=== PATIENT | male | born 1965 | race Caucasian/White ===

== ENCOUNTER 2016-10-19 11:29 | Emergency (ER) | payer OTHER ==
[~2016-10-19] VITALS: Ht 165.1 cm; Wt 64.3 kg
[~2016-10-19 11:29] MED LIST: ATOR-24 PO
[2016-10-19 11:42] VITALS: TEMP 36.7; Ht 165.1 cm; Wt 64.3 kg
[2016-10-19] MEDS ORDERED: TRAMADOL HCL 50 MG TAB PO STA ×2 (12:24→15:55)
[2016-10-19] MEDS ORDERED: DIPHTHERIA/TETANUS/PERTUSSIS 0.5 ML SYR/VIAL IM. ONE (12:30)
--- NOTE | 2016-10-19 13:01 | DIAGNOSTIC IMAGING REPORT ---
CT OF THE CERVICAL SPINE WITHOUT CONTRAST CLINICAL HISTORY: Left neck and left arm pain. Recent injury. COMPARISON STUDY: No previous studies for comparison. TECHNIQUE: Helical axial images of the cervical spine were obtained without IV contrast. Sagittal and coronal reconstructions were viewed. FINDINGS: There is reversal of the normal cervical lordosis. Alignment is otherwise anatomic. There is no acute fracture. Mild to moderate multilevel degenerative changes are most pronounced at C6-C7 level where there is a suspected disc bulge with osteophyte formation. There is no prevertebral edema. IMPRESSION: 1. No cervical spine fracture or subluxation. 2. Multilevel degenerative disc disease most pronounced at C6-C7 where a suspected disc bulge with osteophyte formation that results moderate narrowing of the canal, suboptimally assessed by CT. Electronically signed by: Russ Kirkpatrick M.D. 10/19/2016 12:59 PM Dictated Date/Time: 10/19/2016 12:54 PM
--- NOTE | 2016-10-19 13:32 | EMERGENCY ROOM VISIT NOTE ---
History Report prepared by John: Elyl Ortega Under the Supervision of: Dr. Homer Sosa M.D. First contact with patient: 12:20 Chief Complaint: SHOULDER PAIN Stated Complaint: NECK AND SHOULDER PAIN, NUMBESS IN R ARM History of Present Illness The patient is a 51 year old male who presents to the Emergency Room with complaints of intermittent and worsening right shoulder pain that started a couple weeks ago. The pain occasionally radiates down his right arm and it is worse with movement, especially rotation of his neck or right arm. He describes the pain as a stabbing pain. He adds that he is experiencing pressure in his upper right arm that feels like it is edematous, but he has not noticed any significant edema. Additionally, he is experiencing intermittent numbness in his right arm. The patient states that he originally thought that he had a pinched nerve so he let it go for a while because he anticipated that it would resolve on its own. However, over the last couple of days, the pain has gotten worse and it is at the point that he is unable to sleep at night because of the pain. The patient was able to somewhat relieve his pain with a lidocaine patch and tramadol last night that his has at home from a broken rib. The patient adds that he is also experiencing nausea secondary to the pain, but it is relieved with Zofran. The patient works on flatbed trucks and states that he slipped a few times over the last couple weeks when he was tightening the straps on the truck, which is what originally triggered his pain. He denies being in any other pain including chest pain, abdominal pain, or leg pain. The patient's adds that the patient's tetanus shot is out of date. Source of History: patient, spouse/significant other () Onset: a couple weeks ago Position: shoulder (right) Quality: stabbing Timing: worsening Modifying Factors (Worsening): movement Modifying Factors (Relieving): other (lidocaine patch, tramadol) Associated Symptoms: + nausea, No abdominal pain, No chest pain Note: no leg pain Review of Systems All systems have been listed, reviewed, and are negative other than those previously mentioned. Please see Additional Medical History Sheet. Past Medical & Surgical Medical Problems: (1) History of inguinal hernia Family History Cancer Social History Smoking Status: Never Smoker Alcohol Use: none Marital Status: Housing Status: lives with family Occupation Status: employed Current/Historical Medications Scheduled Atorvastatin (Lipitor), 40 MG PO DAILY Prednisone (Prednisone), 50 MG PO DAILY Scheduled PRN Tramadol (Ultram), 50 MG PO Q4H PRN for Pain Allergies Coded Allergies: No Known Allergies (Unverified , 03/28/14) Physical Exam Vital Signs Date Time Temp Pulse Resp B/P Pulse Ox O2 Delivery O2 Flow Rate FiO2 10/19/16 16:27 65 16 131/92 100 10/19/16 14:48 60 16 127/86 98 Room Air 10/19/16 13:33 57 16 117/67 99 10/19/16 11:42 36.7 71 18 124/79 98 Room Air Physical Exam GENERAL: Patient awake, alert, oriented x 3. Patient follows commands. Patient does not appear toxic. Patient is adequately hydrated and well- nourished. SKIN: No erythema, pallor, cyanosis or rash HEENT: Normal head, pupils equal, reactive to light and accommodation. Oral cavity and posterior pharynx appear normal. Neck: Without adenopathy, no neck vein distention. Tenderness to palpation of medial shoulder to right scapula. Minimal tenderness in neck. Pain with movement of right arm. LUNGS: Clear to auscultation. No wheezes, no rales, no rhonchi. HEART: No murmurs. No gallops. No rubs ABDOMEN: Soft, nontender. EXTREMITIES: No signs of trauma or infection. NEUROLOGIC: Cranial nerves II-XII within normal limits. No gross motor sensory function deficits. Medical Decision & Procedures ER Provider Diagnostic Interpretation: CT and MRI results are interpretations by the radiologist and per my review. CT OF THE CERVICAL SPINE WITHOUT CONTRAST IMPRESSION: 1. No cervical spine fracture or subluxation. 2. Multilevel degenerative disc disease most pronounced at C6-C7 where a suspected disc bulge with osteophyte formation that results moderate narrowing of the canal, suboptimally assessed by CT. Electronically signed by: Russ Kirkpatrick M.D. 10/19/2016 12:59 PM Dictated Date/Time: 10/19/2016 12:54 PM MRI OF THE CERVICAL SPINE WITHOUT CONTRAST IMPRESSION: 1. No acute findings within the cervical spine by MRI. 2. Normal cervical cord signal and caliber. 3. Mild central canal stenosis at C5-C6 and C6-C7. 4. Moderate to severe neural frontal stenosis, as described above. Electronically signed by: Russ Kirkpatrick M.D. 10/19/2016 2:53 PM Dictated Date/Time: 10/19/2016 2:47 PM Medications Administered Medications (Trade) Dose Ordered Sig/Kevon Route Start Time Stop Time Status Last Admin Dose Admin Tramadol HCl (Ultram Tab) 50 mg NOW STAT PO 10/19/16 12:24 10/19/16 12:26 DC 10/19/16 12:49 50 MG Diphtheria/ Pertussis/Tetanus Vacc (Adacel Inj) 0.5 ml ONCE ONCE IM. 10/19/16 12:30 10/19/16 12:31 DC 10/19/16 12:54 0.5 ML Prednisone (PredniSONE TAB) 60 mg NOW STAT PO 10/19/16 15:55 10/19/16 15:57 DC 10/19/16 16:12 60 MG Tramadol HCl (Ultram Tab) 50 mg NOW STAT PO 10/19/16 15:55 10/19/16 15:57 DC 10/19/16 16:11 50 MG ED Course 1220: Past medical records reviewed. The patient was evaluated in room C5. A complete history and physical examination was performed. 1224: Ordered Ultram Tab 50 mg PO 1230: Ordered Adacel Inj 0.5 ml IM 1329: I reassessed the patient and updated him on his CT results. We discussed the possibility of getting a MRI. He agreed to proceed with getting a MRI. 1546: Upon reevaluation, the patient appeared to have improvement of his symptoms. I discussed today's findings with him. He verbalized agreement of the treatment plan. He was discharged home. 1555: Ordered Ultram Tab 50 mg PO, Prednisone 60 mg PO Medical Decision Nurses notes reviewed. Medical history sheet reviewed. Differential diagnosis includes but is not limited to: cervical radiculopathy, muscular strain/spasm. The patient is here with right shoulder or arm and neck pain. I was concerned primarily about cervical radiculopathy. Initial CT did show some narrowing and an MRI was then ordered. Patient has significant narrowing at C5 6 and C6 7. The patient was started on prednisone here. He will also take tramadol as needed for pain. The patient was encouraged to follow up with his family physician. The patient will most likely require consultation by spine surgery. The patient was encouraged to avoid all lifting for at least 1 week. [place] Drug Monitoring Program Search Results: patient reviewed within database, no issues identified Impression Primary Impression: Cervical radiculopathy Scribe Attestation The scribe's documentation has been prepared under my direction and personally reviewed by me in its entirety. I confirm that the note above accurately reflects all work, treatment, procedures, and medical decision making performed by me. Departure Information Dispostion Home / Self-Care Prescriptions Tramadol (Ultram) 50 Mg Tab 50 MG PO Q4H Y for Pain, #24 TAB Prov: Homer Sosa M.D. 10/19/16 Prednisone (PREDNISONE) 50 Mg Tab 50 MG PO DAILY for 4 Days, #6 TAB Prov: Homer Sosa M.D. 10/19/16 Referrals Sharon Macias M.D. (PCP) Forms HOME CARE DOCUMENTATION FORM, IMPORTANT VISIT INFORMATION Patient Instructions My [facility] Additional Instructions Off work for 7 days. 50 mg of prednisone daily starting tomorrow. 1 tramadol every 4 hours as needed for moderate to severe pain. Do not drive or operate machinery while taking tramadol. Follow-up with your family physician within the next week. No lifting or straining for the next 7 days. Work Instructions Return To Work: 1 week Lifting Limitations: none
--- NOTE | 2016-10-19 14:55 | DIAGNOSTIC IMAGING REPORT ---
MRI OF THE CERVICAL SPINE WITHOUT CONTRAST CLINICAL HISTORY: Neck pain with upper extremity radiculopathy. COMPARISON: Cervical spine CT performed earlier today. TECHNIQUE: Utilizing a 1.5 Betty magnet and dedicated coil, multiplanar, multiecho imaging of the cervical spine was performed without IV contrast. FINDINGS: There is straightening of the normal cervical lordosis. Vertebral body heights are maintained. There is no marrow replacement. Cervical cord signal and caliber are normal. There is no intracanalicular mass or fluid collection. Paravertebral soft tissues are unremarkable. C2-C3: The central canal and neural foramen are patent. C3-C4: A small right upper central disc protrusion is present. There is mild narrowing of the right aspect of the canal. There is moderate narrowing of the left neural foramen due to uncovertebral hypertrophy. C4-C5: Central canal and neural foramen are patent. C5-C6: There is a small left paracentral disc protrusion. There is mild narrowing of the left aspect of the canal. There is moderate bilateral neural foraminal stenosis. C6-C7: Posterior disc osteophyte complex results in mild narrowing of the central canal. There is moderate to severe narrowing of the left neural foramen. C7-T1: The central canal and neural foramen are patent. IMPRESSION: 1. No acute findings within the cervical spine by MRI. 2. Normal cervical cord signal and caliber. 3. Mild central canal stenosis at C5-C6 and C6-C7. 4. Moderate to severe neural frontal stenosis, as described above. Electronically signed by: Russ Kirkpatrick M.D. 10/19/2016 2:53 PM Dictated Date/Time: 10/19/2016 2:47 PM
[2016-10-19] MEDS ORDERED: TRAM-10 PO (15:59)
[2016-10-19] MEDS ORDERED: PRED50TA PO (15:59)
[2016-10-19 16:27] VITALS: BP 131/92; PULSE 65; O2SAT 100
== END 2016-10-19 16:28 | disposition home or self-care (01) ==
LOC: C.EDB 11:30 → C.EDC 16:28
DX: M54.12 Radiculopathy, cervical region (principal); Z23 Encounter for immunization; Z79.899 Other long term (current) drug therapy; Z80.9 Family history of malignant neoplasm, unspecified

== ENCOUNTER 2022-10-10 13:21 | Inpatient (IN) ==
--- NOTE | 2022-10-10 13:37 | ED Triage Note ---
Date of Service October 10, 2022 History of Present Illness This patient was briefly evaluated while in triage. An abbreviated physical exam was performed. This patient is a 57-year-old Male who presents to the ED for evaluation of chest pain that began 2 days ago. Sometimes it radiates into his left arm with a little bit of tingling. It is worse when he bends forward and when he comes back up. It was worse with exertion today which is why he came to the ED. He has been laying around in bed over the past 2 days not feeling great. He denies any cough or shortness of breath. No cardiac history. Physical Exam CONSTITUTIONAL: in no acute pain or distress, resting comfortably SKIN: pink, warm, dry CARDIAC: regular rate and rhythm RESPIRATORY: in no respiratory distress, lungs clear to auscultation Initial orders for labs and / or imaging were placed and patient was placed in the waiting area until a bed is available. Please see further documentation for the full ED course.
--- NOTE | 2022-10-10 14:01 | XRay Report ---
XR chest 1V not portable CLINICAL HISTORY: Atypical chest pain. COMPARISON STUDY: Chest radiograph March 28, 2014. FINDINGS: Lung volumes are normal. Lungs are clear. There is no pneumothorax or pleural effusion. Car diac size is normal. Mediastinal contours are normal. There is no evidence for pulmonary edema. IMPRESSION: No acute cardiopulmonary findings. ACT 112: Negative or not required by law. Electronically signed by: Russ Kirkpatrick M.D. 10/10/2022 1:59 PM
[2022-10-10 14:06] LABS: Basophils # (auto) 0.04 K/uL (0-0.2); Basophils % (auto) 0.4 %; Eosinophils % (auto) 0.9 %; Hemoglobin 16.1 g/dl (14.0-18.0); Immature Granulocytes # (auto) 0.03 K/uL (0.01-0.20); Immature Granulocytes % (auto) 0.3 %; Lymphocytes # (auto) 2.09 K/uL (1.2-3.4); Lymphocytes % (auto) 19.3 %; Mean Corpuscular Hemoglobin 29.9 pg (25.0-34.0); Mean Corpuscular Volume 85.3 fL (80.0-100.0); Mean Platelet Volume 9.5 fL (9.4-12.4); Monocytes # (auto) 1.87 K/uL (0.11-0.59); Monocytes % (auto) 17.2 %; Neutrophils # (auto) 6.72 K/uL (1.40-6.50); Neutrophils % (auto) 61.9 %; Platelet Count 282 K/uL (130-400); RDW Coefficient of Variation 12.3 % (11.5-14.5); RDW Standard Deviation 38.1 fL (36.4-46.3); Red Blood Count 5.39 M/uL (4.70-6.10); White Blood Count 10.85 K/ul (4.8-10.8)
[2022-10-10 14:27] LABS: Albumin Globulin Ratio 1.3 (0.9-2); Albumin Level 4.4 gm/dl (3.4-5.0); BUN Creatinine Ratio 12.5 (10-20); Bilirubin,Total 1.8 mg/dl (0.2-1.0); Calcium 9.7 mg/dl (8.6-10.3); Creatinine Clr Calc Pharmacy 61.5 ml/min; Est GFR (African American) 83.5 ml/min; Globulin 3.3 gm/dl (2.5-4.0); Potassium 4.2 mmol/L (3.5-5.1); Total Protein 7.7 gm/dl (6.0-8.3)
[2022-10-10] MEDS ORDERED: ASPIRIN CHEW 324 MG ONE (14:29)
--- NOTE | 2022-10-10 14:36 | Emergency Department Note ---
Impression & Plan ACS (acute coronary syndrome), History of inguinal hernia ED Provider Note NAME: STEFANY CONNER AGE: 57 SEX: M : 1965 ARRIVES VIA: Walk-In INFORMANT: Patient, ED PROVIDER(S): Mannie You MD CHIEF COMPLAINT: Chest pain MEDICAL DECISION MAKING: Patient presents due to concern for chest pain. I did receive an EKG from the nurse which did show a slight elevation in V2 through V5. I did ask for the on- call solar project engineer to be paged. I did evaluate the patient. After evaluating the patient I spoke with Dr. Santamaria who also agreed that the patient would benefit from emergent catheterization. The patient was ordered aspirin, nitro, heparin, and Brilinta. The patient was taken to the [facility] as an acute STEMI. Patient's troponin was noted to be greater than 14,000. Patient's other blood work showed a white count of 10.8 normal H&H and platelet count. The patient's kidney function was unremarkable. Critical Care: I have personally spent 37 minutes of critical care time in direct management of this patient. This includes bedside care, interpretation of diagnostic studies, and testing, discussion with consultants, patient, and family members, and other require inpatient management activities. This 37 minutes is in excess of all separately billable procedures. Prior /Outside records reviewed: None Differential diagnosis: Cardiac ischemia, aortic dissection, pulmonary embolism, pneumothorax, pneumonia, pericarditis, myocarditis, esophageal rupture, GERD, cholecystitis, pancreatitis, musculoskeletal, as well as other pathologies. Diagnostics, as interpreted by me: ECG: Normal sinus rhythm, rate of 86, normal UT, wide QRS, possible right bundle branch block noted, slight elevation noted V2 through V5 no obvious ST depressions. T wave inversion noted in V2 and V3. This is a change from comparison EKG noted March 28, 2014 Cardiac monitoring: An order was placed for continuous cardiac monitoring. The monitor shows a rate of 72 with sinus rhythm. Patient was placed on pulse oximetry Medical decision rules: None Imaging studies: See below HPI: Patient presents due to concern for chest pain that has been fairly constant. The patient states that its been ongoing since Monday. It is worse with exertion and symptoms worsen when bending over and then standing up to where it seems to radiate. It is not more in the middle of the test and described as a pressure. No prior history of heart or lung disease and the patient denies any shortness of breath. Patient denies any recent falls or trauma no cough or fever. No leg swelling or calf pain. No history of DVT or PE. The patient denies any family history of heart attack. The patient states that it was worsening with activity and this presented today. Patient did take an aspirin today. Patient denies any alcohol tobacco or drug use. No pertinent past medical history. The patient did have a prior history of a hernia repair. PAST MEDICAL HISTORY: See Below PAST SURGICAL HISTORY: See Below SOCIAL HISTORY: See Below HOME MEDICATIONS: See Below ALLERGIES: See Below VITALS: See Below PHYSICAL EXAMINATION: GENERAL: NAD, wearing a mask, non-toxic. EYE EXAM: Normal conjunctiva. PERRL, no anisocoria and EOM's grossly intact w/o pain. NECK: Supple, no nuchal rigidity, no adenopathy, non-tender. No signs of meningismus. FROM of the neck with good chin to chest and neck extension. No stridor. LUNGS: Clear to auscultation. Normal chest wall mechanics. HEART: NSR, no MRG. ABDOMEN: Abdomen soft, non-tender, no masses, no rebound or guarding. BACK: No CVA TTP. SKIN: No rashes and no bruising. UPPER EXTREMITIES: Upper extremities are grossly normal. LOWER EXTREMITIES: Grossly normal, no edema. Negative Homans' sign bilaterally. NEURO EXAM: A&O x3, cranial nerves II-XII grossly intact, normal speech, moves all 4 extremities. Past Med/Surg History Medical History Acid reflux History of inguinal hernia Inguinal hernia recurrent bilateral Inguinal hernia recurrent bilateral Family History Other No pertinent family history in first degree relatives Social History Smoking Status: Never smoker Second Hand Exposure: No; Do You Dip or Chew Tobacco: No; Tobacco Cessation Education Requested by Patient: No Hx Alcohol Use: No Hx Substance Use: No Preferred Language: Italian Communication Ability: Effective Elementary Educator Required: No Beliefs That Will Affect Care: None Current Living Situation: Spouse Other Information That Helps Us Care for You: No Feels Safe at Home: Yes Safety Concerns: Feels Safe At This Time Assistive Devices: None Allergies Allergies Allergy/AdvReac Type Severity Reaction Status Date / Time No Known Allergies Allergy Unverified 08/19/18 14:53 Home Meds Home Medications Medication Instructions Recorded Confirmed omeprazole magnesium 20 mg 0 mg PO DAILY 08/19/18 08/19/18 tablet,delayed release (Prilosec OTC) Results & Data (ED) Vital Signs Vital Signs - 24 hr 10/10/22 13:31 10/10/22 14:32 10/10/22 14:32 Temperature 36.7 C Temperature Source Temporal Artery Scan Pulse Rate 108 H 93 H Pulse Rate [Apical] 86 Pulse Rhythm Regular Pulse Strength Normal Respiratory Rate 18 16 Respiratory Effort / Characteristics Non-Labored Respiratory Depth Normal Normal Respiratory Pattern Regular Blood Pressure 134/82 Blood Pressure [Left Arm] 128/90 Blood Pressure Mean 99 Blood Pressure Mean [Left Arm] 102 Blood Pressure Position Lying Pulse Oximetry 98 98 97 Oxygen Delivery Method Room Air Sepsis Recent Fever Within 48 Hours No Sepsis New/Unexplained Change in Mental Status No Sepsis Action Taken by Nursing No Action Required 10/10/22 15:25 Temperature Temperature Source Pulse Rate 128 H Pulse Rate [Apical] Pulse Rhythm Pulse Strength Respiratory Rate Respiratory Effort / Characteristics Respiratory Depth Respiratory Pattern Blood Pressure Blood Pressure [Left Arm] Blood Pressure Mean Blood Pressure Mean [Left Arm] Blood Pressure Position Pulse Oximetry Oxygen Delivery Method Sepsis Recent Fever Within 48 Hours Sepsis New/Unexplained Change in Mental Status Sepsis Action Taken by Longterm Medications Current Medication List: was personally reviewed by me Laboratory Data Attestation: I reviewed the patient's lab results. 10/10/22 13:38 10/10/22 13:38 Lab Results 10/10/22 10/10/22 10/10/22 Range/Units 13:38 13:38 15:39 WBC 10.85 H (4.8-10.8) K/ul RBC 5.39 (4.70-6.10) M/uL Hgb 16.1 (14.0-18.0) g/dl Hct 46.0 (42.0-52.0) % MCV 85.3 (80.0-100.0) fL MCH 29.9 (25.0-34.0) pg MCHC 35.0 (32.0-36.0) g/dL RDW Std Deviation 38.1 (36.4-46.3) fL RDW Coeff of Teagan 12.3 (11.5-14.5) % Plt Count 282 (130-400) K/uL MPV 9.5 (9.4-12.4) fL Immature Gran % (Auto) 0.3 % Neut % (Auto) 61.9 % Lymph % (Auto) 19.3 % [place]elfair % (Auto) 17.2 % Eos % (Auto) 0.9 % Baso % (Auto) 0.4 % Neut # (Auto) 6.72 H (1.40-6.50) K/uL Lymph # (Auto) 2.09 (1.2-3.4) K/uL T[place]air # (Auto) 1.87 H (0.11-0.59) K/uL Eos # (Auto) 0.10 (0-0.50) K/uL Baso # (Auto) 0.04 (0-0.2) K/uL Immature Gran # (Auto) 0.03 (0.01-0.20) K/uL Activ Coag Time Kaolin 282 H (94-140) SECONDS Sodium 139 (136-145) mmol/L Potassium 4.2 (3.5-5.1) mmol/L Chloride 104 (98-107) mmol/L Carbon Dioxide 29 (21-32) mmol/L Anion Gap 6 (3-11) BUN 14 (6-23) mg/dl Creatinine 1.12 (0.6-1.4) mg/dl Est Cr Clr Drug Dosing 61.5 ml/min Est GFR ( Amer) 83.5 ml/min Est GFR (Non-Af Amer) 72.0 ml/min BUN/Creatinine Ratio 12.5 (10-20) Glucose 97 (70-99(Fasting)) mg/dl Calcium 9.7 (8.6-10.3) mg/dl Total Bilirubin 1.8 H (0.2-1.0) mg/dl AST 110 H (13-39) U/L ALT 30 (7-52) U/L Alkaline Phosphatase 79 (34-104) U/L Troponin I High Sens 61548.0 H* (0-20) pg/ml Total Protein 7.7 (6.0-8.3) gm/dl Albumin 4.4 (3.4-5.0) gm/dl Globulin 3.3 (2.5-4.0) gm/dl Albumin/Globulin Ratio 1.3 (0.9-2) Lipase 21 (11-82) U/L 10/10/22 Range/Units 16:05 WBC (4.8-10.8) K/ul RBC (4.70-6.10) M/uL Hgb (14.0-18.0) g/dl Hct (42.0-52.0) % MCV (80.0-100.0) fL MCH (25.0-34.0) pg MCHC (32.0-36.0) g/dL RDW Std Deviation (36.4-46.3) fL RDW Coeff of Teagan (11.5-14.5) % Plt Count (130-400) K/uL MPV (9.4-12.4) fL Immature Gran % (Auto) % Neut % (Auto) % Lymph % (Auto) % T[place] % (Auto) % Eos % (Auto) % Baso % (Auto) % Neut # (Auto) (1.40-6.50) K/uL Lymph # (Auto) (1.2-3.4) K/uL T[place]air # (Auto) (0.11-0.59) K/uL Eos # (Auto) (0-0.50) K/uL Baso # (Auto) (0-0.2) K/uL Immature Gran # (Auto) (0.01-0.20) K/uL Activ Coag Time Kaolin 233 H (94-140) SECONDS Sodium (136-145) mmol/L Potassium (3.5-5.1) mmol/L Chloride (98-107) mmol/L Carbon Dioxide (21-32) mmol/L Anion Gap (3-11) BUN (6-23) mg/dl Creatinine (0.6-1.4) mg/dl Est Cr Clr Drug Dosing ml/min Est GFR ( Amer) ml/min Est GFR (Non-Af Amer) ml/min BUN/Creatinine Ratio (10-20) Glucose (70-99(Fasting)) mg/dl Calcium (8.6-10.3) mg/dl Total Bilirubin (0.2-1.0) mg/dl AST (13-39) U/L ALT (7-52) U/L Alkaline Phosphatase (34-104) U/L Troponin I High Sens (0-20) pg/ml Total Protein (6.0-8.3) gm/dl Albumin (3.4-5.0) gm/dl Globulin (2.5-4.0) gm/dl Albumin/Globulin Ratio (0.9-2) Lipase (11-82) U/L Administered Medications Sodium Chloride (Nss 1000ml) 1,000 mls @ 100 mls/hr IV .Q10H OMAR Stop: 10/10/22 22:14 Last Admin: 10/10/22 17:56 Dose: 100 mls/hr Documented By: DERICK Miscellaneous (Icu Protocol For Hyperglycemia) 1 each N/A ACHS OMAR Stop: 10/12/22 17:42 Last Admin: 10/10/22 17:58 Dose: Not Given Documented By: DERICK Discontinued Medications Aspirin (Aspirin Chew 324 Mg) Confirm Administered Dose 324 mg .ROUTE .STK-MED ONE Stop: 10/10/22 14:30 Last Admin: 10/10/22 14:48 Dose: 324 mg Documented By: ESEQUIEL Aspirin (Aspirin Chew 324 Mg) 324 mg PO NOW STA Stop: 10/10/22 14:47 Last Admin: 10/10/22 16:42 Dose: Not Given Documented By: ENRIQUE Fentanyl Citrate (Fentanyl Citrate Pf 100 Mcg/2 Ml Vial) Confirm Administered Dose 100 mcg .ROUTE .STK-MED ONE Stop: 10/10/22 14:46 Last Admin: 10/10/22 16:41 Dose: 100 mcg Documented By: ENRIQUE Fentanyl Citrate (Fentanyl Citrate Pf 100 Mcg/2 Ml Vial) Confirm Administered Dose 100 mcg .ROUTE .STK-MED ONE Stop: 10/10/22 16:10 Last Admin: 10/10/22 16:41 Dose: 25 mcg Documented By: ENRIQUE Heparin Sodium (Porcine) (Heparin (Porcine) 1000 Unit/Ml 10 Ml ([facility] Use Only)) Confirm Administered Dose 10,000 units .ROUTE .STK-MED ONE Stop: 10/10/22 14:46 Last Admin: 10/10/22 16:42 Dose: 10,000 units Documented By: ENRIQUE Heparin Sodium (Porcine) (Heparin Sod (Porcine) 1000 Unit/Ml) 5,000 units IV NOW ONE Stop: 10/10/22 14:57 Last Admin: 10/10/22 16:43 Dose: Not Given Documented By: ENRIQUE Heparin Sodium/Sodium Chloride (Heparin In Nss Infusion 1000 Unit/500 Ml (2 U/Ml) Bag) Confirm Administered Dose 3,000 units IV .STK-MED ONE Stop: 10/10/22 14:47 Last Admin: 10/10/22 16:43 Dose: 3,000 units Documented By: CUCO Heparin Sodium/Dextrose (Heparin Sodium/Dextrose) 25,000 units in 500 mls @ 22 mls/hr IV .[id number] [facility]; Protocol Stop: 11/09/22 14:59 Last Admin: 10/10/22 16:43 Dose: Not Given Documented By: ENRIQUE Midazolam HCl (Midazolam Hcl 1 Mg/Ml 2ml Vial) Confirm Administered Dose 2 mg .ROUTE .STK-MED ONE Stop: 10/10/22 14:46 Last Admin: 10/10/22 16:42 Dose: 2 mg Documented By: ENRIQUE Midazolam HCl (Midazolam Hcl 1 Mg/Ml 2ml Vial) Confirm Administered Dose 2 mg .ROUTE .STK-MED ONE Stop: 10/10/22 15:50 Last Admin: 10/10/22 16:44 Dose: 2 mg Documented By: ENRIQUE Nicardipine HCl (Nicardipine Hcl Inj 2.5 Mg/Ml 10 Ml Amp) Confirm Administered Dose 25 mg .ROUTE .STK-MED ONE Stop: 10/10/22 14:46 Last Admin: 10/10/22 16:42 Dose: 25 mg Documented By: CUCO Nitroglycerin (Nitroglycerin Sl 0.4 Mg/Tab Tab) Confirm Administered Dose 0.4 mg .ROUTE .STK-MED ONE Stop: 10/10/22 14:42 Last Admin: 10/10/22 14:42 Dose: 0.4 mg Documented By: ESEQUIEL Nitroglycerin (Nitroglycerin Sl 0.4 Mg/Tab Tab) 0.4 mg SL NOW STA Stop: 10/10/22 14:45 Last Admin: 10/10/22 14:48 Dose: 0.4 mg Documented By: ESEQUIEL Nitroglycerin/Dextrose (Nitroglycerin/D5w 100mcg/Ml 20ml Syr) Confirm Administered Dose 2,000 mcg .ROUTE .STK-MED ONE Stop: 10/10/22 14:47 Last Admin: 10/10/22 16:43 Dose: 2,000 mcg Documented By: CUCO Pantoprazole Sodium (Pantoprazole 40 Mg Tab) 40 mg PO NOW STA Stop: 10/10/22 17:18 Last Admin: 10/10/22 18:18 Dose: 40 mg Documented By: DERICK Ticagrelor (Ticagrelor 90 Mg Tab) 180 mg PO ONE ONE Stop: 10/10/22 14:42 Last Admin: 10/10/22 14:48 Dose: 180 mg Documented By: ESEQUIEL Imaging Data Radiologist's Impression: Chest X-Ray 10/10/22 13:32 XR chest 1V not portable CLINICAL HISTORY: Atypical chest pain. COMPARISON STUDY: Chest radiograph March 28, 2014. FINDINGS: Lung volumes are normal. Lungs are clear. There is no pneumothorax or pleural effusion. Cardiac size is normal. Mediastinal contours are normal. There is no evidence for pulmonary edema. IMPRESSION: No acute cardiopulmonary findings. ACT 112: Negative or not required by law. Electronically signed by: Russ Kirkpatrick M.D. 10/10/2022 1:59 PM Discharge Plan Visit Data Chief Complaint: Chest Pain Stated Complaint: CHEST PAIN ED Provider: Mannie You Discharge Problem: ACS (acute coronary syndrome), History of inguinal hernia Patient Disposition: Admitted As Inpatient Discharge Instructions Interventions: ED Discharge Assessment Last Done: 10/10/22 17:36
[2022-10-10] MEDS ORDERED: TICAGRELOR 90 MG TAB PO ONE (14:41)
[2022-10-10] MEDS ORDERED: Heparin IV Adult Wt-Based Standard WITH Bolus Protocol IV STA (14:41)
[2022-10-10] MEDS ORDERED: NITROGLYCERIN SL 0.4 MG/TAB TAB ONE (14:41)
[2022-10-10] MEDS ORDERED: NITROGLYCERIN SL 0.4 MG/TAB TAB SL STA (14:44)
[2022-10-10] MEDS ORDERED: fentaNYL citrate PF 100 MCG/2 ML VIAL ONE ×2 (14:45→16:09)
[2022-10-10] MEDS ORDERED: MIDAZOLAM HCL 1 MG/ML 2ML VIAL ONE ×2 (14:45→15:49)
[2022-10-10] MEDS ORDERED: HEPARIN (PORCINE) 1000 UNIT/ML 10 ML (CATH LAB USE ONLY) ONE (14:45)
[2022-10-10] MEDS ORDERED: niCARdipine HCL INJ 2.5 MG/ML 10 ML AMP ONE (14:45)
[2022-10-10] MEDS ORDERED: ASPIRIN CHEW 324 MG PO STA (14:46)
[2022-10-10] MEDS ORDERED: NITROGLYCERIN/D5W 100MCG/ML 20ML SYR ONE (14:46)
[2022-10-10] MEDS ORDERED: HEPARIN SOD (PORCINE) 1000 UNIT/ML IV ONE ×2 (14:56)
[2022-10-10] MEDS ORDERED: HEPARIN SODIUM/DEXTROSE 25,000 UNITS/500 ML BAG IV SCH (15:00)
--- NOTE | 2022-10-10 15:08 | Pre Anesthesia Assessment ---
Date of Service October 10, 2022 Pre Sedation Assessment Vital Signs Temp Pulse Pulse Resp BP BP Pulse Ox 10/10/22 14:32 93 H 97 10/10/22 14:32 86 16 128/90 98 10/10/22 13:31 98.1 F 108 H 18 134/82 98 O2 Del Method 10/10/22 14:32 10/10/22 14:32 10/10/22 13:31 Room Air Cardiovascular RRR, no murmur, no edema Respiratory normal respiratory effort, lungs clear to auscultation Pre-Sedation Airway Assessment Smoking Status: Never smoker Hx Sleep Apnea: No Hx Difficult Intubation: No Short, Thick Neck: No Thyromental Distance: > or= 3.5 Finger Breadths Oral Cavity: + WNL Mallampati Class: III ASA: ASA3 Procedure Planning Contraindications for Sedation: none Current Medications Reviewed: Yes Notes The planned sedation has been discussed with the patient. Informed Consent was obtained. I have identified the patient, determined the appropriateness of sedation and have assessed the patient immediately prior to the procedure. All medicine(s) and interventions are by my order.
--- NOTE | 2022-10-10 15:12 | History & Physical Report ---
Date of Service October 10, 2022 Assessment & Plan (1) ACS (acute coronary syndrome): Plan: ACS 2/2 LAD occlusion - 2 days of chest pain with trip 14k on admit, EKG with V2-V5 ST elevations. Cath shows STEMI/100% mid LAD occlusion with partial right to left collaterals 2. Moderate nonculprit coronary artery disease. 30 to 40% left main by IVUS. 30% ostial circumflex. 60% ostial small OM1 -Cardiology following. Dual antiplatelet therapy for 1 year, trend troponins to peak, beta-zana/BHAVANA/statin and cardiac rehab Lipid panel pending, atorvastatin 80 mg ordered Continue aspirin/ticagrelor DAPT Continue metoprolol tartrate 12.5 mg p.o. twice daily Continue lisinopril 5 mg every morning Heparin GTT discontinued Patient like to follow-up with [facility] PCP and cardiology in the future if possible as his gets care through [facility], CM consulted for facilitation of appointment (2) Inguinal hernia recurrent bilateral: Plan: No acute management (3) Acid reflux: Plan: No symptoms at time of assessment Plan Diet: Heart healthy Disposition: Post catheter covering ICU CODE STATUS: Full code History of Present Illness Primary Care Provider: NO PCP Avelino is a 57-year-old male with a past medical history of esophageal stenosis, GERD, and inguinal hernia s/p repair on who presented with left arm and shoulder pain of 1 day which she thought was GERD. He had had similar GERD symptoms in the past for which she had been on intermittent antiacid medicines, but had stopped these due to improvement in symptoms. He notes he was on cholesterol medicines while in the , but stopped these around 2 years ago. Has not followed up with a PCP recently. 2 days ago around dinnertime he was walking and had sudden tightness in his chest which radiated to his neck and his left shoulder. Thought this may have been GERD versus some neuropathy as he has C5- C7 injury which improved with physical therapy. He reports he rested which helped the pain a little bit, but generally had continued chest pain for the next 2 days which did not resolve completely at any point. He continued to have chest pain worsened on exertion morning of admission, although no shortness of breath or diaphoresis. Due to ongoing pain he presented to the ER for evaluation. He was found to have V2V5 ST elevations and a right bundle branch block, with a elevated troponin of 14,000. He was taken emergently to the Emergency Medicine Medical Director and was found to have a complete LAD occlusion. He is seen postcatheterization. Postcatheterization his pain has completely resolved and he has no chest pain, shortness of breath, lightheadedness or dizziness. He reports he has not been sick leading up to this and has had no fever or chills. He does not have any pain at all, including any pain similar to his prior GERD pain. His right wrist has a TR band in place, he has no underlying swelling. Sensation is intact in his fingertips bilaterally without deficit, and he does not feel he is having any weakness. He reports his does see Dr. Benoit as an outpatient, and he would like to establish with his office for follow-up in the future. He also does not have a PCP, but would like to establish with [facility] primary care preferably with a provider at the same office as his . No other questions or concerns at bedside. He does not have any personal or family history of diabetes, no personal or family history of hypertension, denies personal and family history of RI. Does have a personal history of hyperlipidemia. Denies current and former tobacco use. Full code. Allergies Allergy/AdvReac Type Severity Reaction Status Date / Time No Known Allergies Allergy Unverified 08/19/18 14:53 Home Medications Medication Instructions Recorded Confirmed Type omeprazole magnesium 20 mg 0 mg PO DAILY 08/19/18 08/19/18 History tablet,delayed release (Prilosec OTC) Past Med/Surg History Medical History (Updated 10/10/22 @ 17:51 by Duane Nagel MD) Acid reflux History of inguinal hernia Inguinal hernia recurrent bilateral Inguinal hernia recurrent bilateral Family History Other No pertinent family history in first degree relatives Social History Smoking Status: Never smoker Second Hand Exposure: No; Do You Dip or Chew Tobacco: No; Tobacco Cessation Education Requested by Patient: No Hx Alcohol Use: No Hx Substance Use: No Preferred Language: Kuwaiti Communication Ability: Effective Servicenow Administrator Required: No Beliefs That Will Affect Care: None Current Living Situation: Spouse Other Information That Helps Us Care for You: No Feels Safe at Home: Yes Safety Concerns: Feels Safe At This Time Assistive Devices: None Review of Systems Review of Systems: All systems reviewed & are unremarkable except as noted in HPI & below Physical Exam Physical Exam: General: A&Ox3. NAD. Cooperative. HEENT: Atraumatic, normocephalic. Vision/hearing grossly intact Pulm: CTAB A&P. -wheezes, -rales, -rhonchi. Symmetrical chest rise. No increased work of breathing. No respiratory distress. Cardiac: RRR, -mrg. Radial pulses intact and symmetrical. Abdominal: Nontender, nondistended, soft. BS present. Extremities: TR band in place on right wrist. No underlying hematoma. Cap refill is intact in fingers bilaterally, sensation to soft touch and property consultant strength intact bilaterally. Results & Data Results & Data Vital Signs (Past 12 Hours) Vital Signs Temp Pulse Pulse Resp BP BP Pulse Ox 10/10/22 14:32 93 H 97 10/10/22 14:32 86 16 128/90 98 10/10/22 13:31 36.7 C 108 H 18 134/82 98 O2 Del Method 10/10/22 14:32 10/10/22 14:32 10/10/22 13:31 Room Air PG Care Time/CCT Total # of Minutes Spent Total Time Spent with Patient: Total time spent is greater than 50% in coordination of care (as documented) at patient's floor/unit and/or counseling patient: Coding Level of Care Code 02660 INT INP/OBS CARE 3/75MIN Diagnoses ACS (acute coronary syndrome) I24.9 Inguinal hernia recurrent bilateral K40.21 Acid reflux K21.9
--- NOTE | 2022-10-10 16:02 | Electrocardiogram Report ---
Test Reason : Blood Pressure : / mmHG Vent. Rate : 098 BPM Atrial Rate : 098 BPM P-R Int : 142 ms QRS Dur : 112 ms QT Int : 330 ms P-R-T Axes : 048 145 053 degrees QTc Int : 421 ms Normal sinus rhythm Left atrial enlargement Right bundle branch block with repolarization abnormality Old Anteroseptal infarct Abnormal ECG When compared with ECG of 28-MAR-2014 10:49, Right bundle branch block is now Present Criteria for Anteroseptal infarct is now Present Confirmed by Usman Quinones ([id number]) on 10/10/2022 4:02:18 PM Referred By: REFERRED SELF Confirmed By:Usman Quinones
--- NOTE | 2022-10-10 16:50 | Post Anesthesia Assessment ---
Date of Service October 10, 2022 Post Sedation Assessment Vital Signs Temp Pulse Pulse Resp BP BP Pulse Ox 10/10/22 16:39 93 H 18 122/76 98 10/10/22 15:25 128 H 10/10/22 14:32 93 H 97 10/10/22 14:32 86 16 128/90 98 10/10/22 13:31 98.1 F 108 H 18 134/82 98 O2 Del Method 10/10/22 16:39 Room Air 10/10/22 15:25 10/10/22 14:32 10/10/22 14:32 10/10/22 13:31 Room Air Recovery Score Activity: Moves 4 extremities Respiration: Deep Breath/Cough Circulation: +/-20% PreAnes Value Consciousness: Fully Awake Oxygen Saturation: > 92% On Room Air Post Anesthesia Score: 10 Discharge Sedation Level of Care: Fast Track Phase II Post Sedation Plan On clinical assessment, the patient appears to have tolerated the sedation wit hout complications. Patient is recovering as anticipated. Patient will continue to be monitored by nursing and may be discharged when sedation discharge criteria are met per below protocol. Upon Completions of procedure up to 15 minutes continue every 5 minute vital signs and the P.A.R. score; then discharge to a Phase I or Fast Track to Phase II per the following guidelines: * Discharge Patient to appropriate Phase II area if PAR is 8 or greater or return to pre- procedure baseline. The post - procedure orders will be as directed. * If PAR score is less than 8 or not return to pre-procedure baseline then patient will follow Phase I monitoring till PAR is reached for Phase II. The Phase I may be done in procedure room or may call to secure a Phase I area. * If naloxone or flumazenil are used for reversal, hold in Phase I for continued monitoring from when last reversal dose was given for a minimum of 60 minutes or longer pending the nurse and/or physician discretion of patient condition before discharge to Phase II. Please call the Sedation Physician to re-evaluate and complete post-note for discharge to Phase II area. Do NOT discharge from procedure sedation or Phase 1 until post- sedation evaluation note is complete by procedure /sedation MD Sedation Discharge Instructions to be given to the patient at discharge to home.
--- NOTE | 2022-10-10 16:59 | Cardiology Consultation ---
Date of Consultation October 10, 2022 Assessment & Plan (1) ACS (acute coronary syndrome): Presentation consistent with high risk ACS and recommend proceeding with urgent cardiac catheterization and possible PCI. No apparent contraindications to procedure. Discussed risks, benefits, alternatives of procedure with patient and they are willing to proceed. Given ticagrelor 180 mg in the ED. Further recommendations pending findings of coronary angiography. History of Present Illness History of Present Illness 57-year-old man here with acute chest pain, elevated troponin and ECG concerning for acute TX. Patient seen urgently in the ED after initial HS TropI of 14,000. No prior cardiac history. Reports prior history of GERD but currently on no medications. No family history of CAD. Non-smoker. Has been having near constant chest pain for almost 2 days. States initially began while walking felt like there was burning in his lungs and since then has had substernal tightness that has been gradually progressive and associated with some numbness tingling in his left arm. Had brief reminiscent symptoms last year when he was diagnosed with GERD. Otherwise no recent change to his exercise tolerance. On arrival to the ED ongoing chest pain, hemodynamically stable. ECG showed sinus rhythm with right bundle branch block with Q waves and subtle ST elevations in V2 through V5. Social history: Retired now Works in [employer] with his . Allergies Allergy/AdvReac Type Severity Reaction Status Date / Time No Known Allergies Allergy Unverified 08/19/18 14:53 Home Medications Medication Instructions Recorded Confirmed Type omeprazole magnesium 20 mg 0 mg PO DAILY 08/19/18 08/19/18 History tablet,delayed release (Prilosec OTC) Patient History Medical History (Updated 10/10/22 @ 16:58 by Ruperto Santamaria MD) Acid reflux History of inguinal hernia Inguinal hernia recurrent bilateral Inguinal hernia recurrent bilateral Family History Other No pertinent family history in first degree relatives Social History Smoking Status: Never smoker Feels Safe at Home: Yes Review of Systems Review of Systems: All systems reviewed & are unremarkable except as noted in HPI & below Physical Exam Physical Exam: General: Uncomfortable, pale HEENT: Sclerae anicteric Lungs: Clear to auscultation bilaterally Cardiac: Tachycardic, regular, no murmurs Vascular: 2+ radial Abdomen: Soft, nontender Extremities: Well perfused, no peripheral edema Neuro: Nonfocal Psych: Alert orient x3, normal affect and mood Results & Data Vital Signs (Past 12 Hours) Vital Signs Temp Pulse Pulse Resp BP BP Pulse Ox 10/10/22 14:32 93 H 97 10/10/22 14:32 86 16 128/90 98 10/10/22 13:31 98.1 F 108 H 18 134/82 98 O2 Del Method 10/10/22 14:32 10/10/22 14:32 10/10/22 13:31 Room Air PG Care Time/CCT Total # of Minutes Spent Total Time Spent with Patient: Total time spent is greater than 50% in coordination of care (as documented) at patient's floor/unit and/or counseling patient: Coding Level of Care Code 03076 OFFICE CONSULT LVL Diagnoses ACS (acute coronary syndrome) I24.9
[2022-10-10] MEDS ORDERED: ONDANSETRON INJ 2 MG/ML 2 ML VIAL IV PRN (17:15)
[2022-10-10] MEDS ORDERED: ATROPINE SULFATE 0.1 MG/ML 10ML SYR IV PRN (17:15)
[2022-10-10] MEDS ORDERED: ACETAMINOPHEN 325 MG TAB PO PRN (17:15)
[2022-10-10] MEDS ORDERED: SODIUM CHLORIDE 0.9% 1000ML 1,000 ML IV SCH (17:15)
--- NOTE | 2022-10-10 17:15 | Cardiac Catheterization ---
[facility] Data: Test Administrator Cardiac Status Clinical evaluation leading to the procedure CAD Presenation: STEMI Anginal Classification: CCS IV Diagnostic Physicians Name: Julio Santamaria MD Closure Device Recommendations: PCI without planned CABG Cardiac Cath Procedure Full Procedure Date October 10, 2022 Pre-Procedure Diagnosis Pre-Procedure Diagnosis: Non STEMI AUC Score AUC Score: 8 Post-Procedure Diagnosis Post-Procedure Diagnosis: Severe CAD, Successful PCI and Normal Intracardiac Pressures Procedure(s) Performed Procedure(s) Performed: Coronary Angiography, Left Heart Cath, Drug Eluting Stent and IVUS Clinical Application Consultant Julio Santamaria MD Supervisor Customer Complaint Service(s) Jones Estimated Blood Loss Estimated Blood Loss: 10 Medication(s) Medication(s): Fentanyl, Heparin, Lidocaine 1%, Nicardipine, Nitroglycerin and Versed Medication(s): Ticagrelor Summary of Findings Indication: High risk ACS Access: 6 Fr right radial artery Catheters: [place], EBU 3.5 guide, pigtail Findings: LM -normal caliber, 30% mid/distal disease (IVUS reveals eccentric plaque, minimally calcified, diffuse disease up to 30 to 40% extending to bifurcation LAD -medium caliber, mildly calcified, diffuse moderate to severe disease, acute on chronic 100% mid occlusion. Small to medium D1 with mild disease Circumflex -medium caliber, 30% ostial, remainder of vessel without significant disease. High small OM1 with 60% ostial stenosis. Large OM 2 without disease. RCA -dominant, large caliber vessel, luminal irregularities. RPDA widely patent and provides partial collaterals to LAD via septals LVEDP -16 -- PCI -- Antithrombotic therapy: Heparin, ticagrelor Procedure: Left main cannulated with EBU 3.5 guide Whisper wire passed across lesion into distal LAD Mid LAD lesion predilated with 2.0 compliant balloon Agnitus IVUS catheter placed into mid LAD. Pullback revealed extensive atherosclerotic plaque extending past second diagonal and back to LAD ostium. 30 to 40% eccentric disease in left main Mid LAD stented with 2.75 x 33 mm Xience drug-eluting stent Second NACHO (3.0 x 23 mm Xience) placed from LAD ostium overlapping proximal aspect of initial stent IC vasodilators administered Stent post-dilated with 3.5 noncompliant balloon Additional IC vasodilators administered for spasm Minimal flow noted in small second diagonal. Diagonal wired through stent struts with relief pilot 50 wire. Unable to pass 1.5, 2.0 balloons across stent struts. Dilated with multiple 1.5 inflations as able Additional IC vasodilators administered Angiographically post procedure ASPEN III flow in LAD, stents well expanded, minimal residual stenosis and no apparent cardiac complications. Had ASPEN II flow in small second diagonal Repeat IVUS showed well apposed, well-expanded stents with no apparent edge complications. Arterial Closure: TR band Summary: 1. Late presenting anterior STEMI/100% mid LAD occlusion with partial right to left collaterals 2. Moderate nonculprit coronary artery disease 30 to 40% left main by IVUS 30% ostial circumflex. 60% ostial small OM1 3. Normal intracardiac filling pressure 4. Successful PCI of ostial to mid LAD with 2 overlapping drug-eluting stents (3.0 x 23, 2.75 x 33 mm Xience; postdilated with 3.5 NC). Recommendations: Admit to ICU for continued monitoring Loaded with ticagrelor 180 mg in ED Continue dual-antiplatelet therapy for at least 1 year. Trend troponins until peak, Check Echo Uptitrate beta-zaan/BHAVANA as BP allows High-dose statin Consult cardiac Rehab Hemodynamics Rest Ao:: 104/76/27 Final Ao: 102/73/87 LV: 97/16 Recommendations Recommendations: PCI without planned CABG Specimens Specimens: None Radiation Exposure (mGy) 1953 Contrast (mls) 110 Anesthesia Moderate 3508-7495 Procedural Complication(s) None Disposition ICU I attest to the content of the Intraoperative Record and any orders documented therein. Any exceptions are noted below. [facility] Card Cath Procedure Codes Cardiac Catheterization Procedure 1: Cardiovascular Cath Procedures: 11893 Coronaries and LHC (+/-LV) Therapeutic Services & Ancillary Procedure 1: Cardiovascular Tx and Anc Procedures: 00007 IV Ultrasound (Coronary or Graft) Moderate Sedation Procedure 1: Sedation/Anesthesia: 98564 Mod Sedation by the same physician;Init15 Min Child Age 5 & Up Procedure 2: Sedation/Anesthesia: 58482 Mod Sedation by the same physician; Ea [id number] Minutes Stenting Procedure 1: Cardiovascular Stent Procedures: 23134 Perc transluminal revascularization of acute sub/total occl, aMI PG Care Time/CCT Total # of Minutes Spent Total Time Spent with Patient: Total time spent is greater than 50% in coordination of care (as documented) at patient's floor/unit and/or counseling patient:
[2022-10-10] MEDS ORDERED: PANTOprazole 40 MG TAB PO STA (17:17)
[2022-10-10] MEDS: ICU Protocol for HYPERglycemia SCH ×2 (17:58→21:00)
--- NOTE | 2022-10-10 19:30 | Critical Care Consultation ---
Date of Consultation October 10, 2022 Assessment & Plan (1) Acid reflux: (2) ACS (acute coronary syndrome): (3) Inguinal hernia recurrent bilateral: (4) COVID: Plan Reason Critically Ill: S/P ACS NSTEMI with PCI and NACHO to ostial and LAD Neuro - No acute needs CAM ICU: Negative - recovering well following sedation, tolerating diet Cardiac - CAD, NSTEMI, S/P PCI NACHO to LAD - Patient denies family history, he reports his only risk factor is high choles terol for which he was on medicaitoin before, does not smoke, dipesh drinking or elicit drug use. Physically active - BB/BHAVANA/ARB/STATIN/DAPT- already ordered continue per cardiology - ECHO in morning - Trend HScTNI - comorbidity assessment with lipids, HGBA1c, - STOP Bang- 2 Respiratory - COVID 19 - on room air - No symptoms of COVID endorsed GI - No acute needs - Tolerating regular diet - PPI while on DAPT RENAL/LYTES - No acute needs - ICU electrolyte protocol - Follow renal indices - NO acute needs ENDO - No acute needs - Follow glucose levels goal <180mg/DL HEME - No acute needs - follow with DAPT therapy ID - COVID 19 - Patient asymptomatic- unsure of onset of illness- no current indication for further treatment LINES/IV ACCESS - PIV Continue use of these lines DVT PROPHYLAXIS - SCDS, ASA, Brilinta, Ambulation DISPO- ICU 24 hours post stenting follow hemodynamics, follow rhythm/ectopy I have personally spent 45 minutes of critical care time in the direct management of this patient. This is a life/limb threatening event. This includes time spent evaluating patient, direct bedside care, chart review, placing ord ers, interpretation of diagnostic studies, discussion with consultants, patient, and family members, as well as other required patient management activities. This time is exclusive of all separately billable procedures, and separate from and in addition to any other critical care service time. Thank you for allowing us to participate in the care of this patient. Please refer to my attending physician's documentation for any further recommendations. History of Present Illness Reason for Consultation: NSTEMI with 2 NACHO Requesting Physician: Duane Nagel MD Attending Physician: Duane Nagel MD History of Present Illness 57 YOM retired , currently without PCP or on current medications. Patient states that he was preciously on medication for cholesterol, but stopped this when he got out of the [place]. Patient reports that he had onset of chest discomfort with radiation into his neck for the past 2 days. The pain never really went away and originally he thought it was GERD. Pain maximum intensity was this morning and occurred while he was at rest. This had more radiation into his neck than previous days, was not associated with any n/v/diaphoresis. No radiation down arms or to mid back. In the EMD the patient had ECG performed, routine labs to include HScTNI, was given asa, and initiated on Heparin infusion. He is noted with RBB on his ECG. He was diagnosed with ACS/NSTEMI and taken to the [facility]. He underwent angiography and IVUS- was noted with Mid LAD 100% back to ostial with collaterals- therefore he had PCI to ostial to mid LAD with overlapping NACHO. Patient was loaded on with Ticagrelor and will continue DAPT therapy per cardiology. Patient will be monitored in the ICU for hemodynamic status as well as trend troponin and ECGs. Currently he states that he is pain free and feels "much better" since he came to the hospital. Notified of COVID POSITIVE-2255 Allergies Allergy/AdvReac Type Severity Reaction Status Date / Time No Known Allergies Allergy Unverified 08/19/18 14:53 Home Medications Medication Instructions Recorded Confirmed Type omeprazole magnesium 20 mg 0 mg PO DAILY 08/19/18 08/19/18 History tablet,delayed release (Prilosec OTC) Patient History Medical History (Updated 10/10/22 @ 22:57 by PEDRO Tanner) Acid reflux History of inguinal hernia Inguinal hernia recurrent bilateral Inguinal hernia recurrent bilateral Surgical History (Updated 10/10/22 @ 19:20 by PEDRO Tanner) History of hernia repair Family History Other No pertinent family history in first degree relatives Social History Smoking Status: Never smoker Second Hand Exposure: No; Do You Dip or Chew Tobacco: No; Tobacco Cessation Education Requested by Patient: No Hx Alcohol Use: No Hx Substance Use: No Preferred Language: Kiswahili Communication Ability: Effective Him Specialist Required: No Beliefs That Will Affect Care: None Current Living Situation: Spouse Other Information That Helps Us Care for You: No Feels Safe at Home: Yes Safety Concerns: Feels Safe At This Time Assistive Devices: None Review of Systems Review of Systems: REVIEW OF SYSTEMS: Constitutional: No fever, sweats or chills Eyes: No diplopia, no worsening or blurred vision ENT: normal hearing, no trouble swallowing Respiratory: No cough, sputum, dyspnea at rest or on exertion Cardiovascular: No chest pain, tightness or palpitations Abdomen: No pain, nausea, vomiting, diarrhea or constipation Musculoskeletal: (+) cervicalgia chronic, No joint pain, calf pain, swelling Neurologic: No weakness, numbness/tingling, or balance problems Psychiatric: No anxiety or depression Skin: No rash or itch Physical Exam Physical Exam: PHYSICAL EXAM: General: awake, alert, no apparent distress Head: Normocephalic, atraumatic ENT: PERRL, EOMI, no pharyngeal exudate, mucous membranes moist Neuro: AAO x 3, speech clear and appropriate, strength intact bilaterally 5/5, sensation intact and equal all extremities and dermatomes, no pronator drift Chest: equal rise and fall of the chest, no accessory muscle use, no heaves or thrills, Clear to auscultation, on room air, Cardiac: Regular rate and rhythm, telemetry reviewed, skin warm dry, cap refill <3 seconds, peripheral pulses +2 no JVD, no murmur, no edema GI: NABS x 4 quadrants, soft, nontender to palpation, no rebound, guarding or tenderness : Spontaneously voiding, no pain, no CVA tenderness, Extremities: Normal inspection, no peripheral edema or erythema, calfs nontender to palpation Psych: Normal mood and affect Skin: no rash or erythema Results & Data Results & Data Vital Signs (Past 12 Hours) Vital Signs Temp Pulse Pulse Resp BP BP Pulse Ox 10/10/22 18:50 88 19 109/66 96 10/10/22 18:15 69 15 101/69 97 10/10/22 18:00 91 H 20 98/77 L 99 10/10/22 17:49 85 14 111/72 98 10/10/22 17:45 91 H 27 H 86/64 L 95 10/10/22 17:30 89 17 111/83 95 10/10/22 17:43 81 10/10/22 17:16 36.9 C 81 14 102/74 97 10/10/22 16:39 93 H 18 122/76 98 10/10/22 15:25 128 H 10/10/22 14:32 93 H 97 10/10/22 14:32 86 16 128/90 98 10/10/22 13:31 36.7 C 108 H 18 134/82 98 O2 Del Method 10/10/22 18:50 10/10/22 18:15 10/10/22 18:00 10/10/22 17:49 10/10/22 17:45 10/10/22 17:30 Room Air 10/10/22 17:43 10/10/22 17:16 Room Air 10/10/22 16:39 Room Air 10/10/22 15:25 10/10/22 14:32 10/10/22 14:32 10/10/22 13:31 Room Air Laboratory Results Abnormal lab results 10/10/22 10/10/22 10/10/22 Range/Units 13:38 13:38 15:39 WBC 10.85 H (4.8-10.8) K/ul Neut # (Auto) 6.72 H (1.40-6.50) K/uL [place] # (Auto) 1.87 H (0.11-0.59) K/uL Activ Coag Time Kaolin 282 H (94-140) SECONDS POC Glucose (70-99) mg/dl Total Bilirubin 1.8 H (0.2-1.0) mg/dl AST 110 H (13-39) U/L Troponin I High Sens 34009.0 H* (0-20) pg/ml 10/10/22 10/10/22 Range/Units 16:05 17:57 WBC (4.8-10.8) K/ul Neut # (Auto) (1.40-6.50) K/uL [place] # (Auto) (0.11-0.59) K/uL Activ Coag Time Kaolin 233 H (94-140) SECONDS POC Glucose 140 H (70-99) mg/dl Total Bilirubin (0.2-1.0) mg/dl AST (13-39) U/L Troponin I High Sens (0-20) pg/ml Diagnostic Findings Chest X-Ray 10/10/22 13:32 XR chest 1V not portable CLINICAL HISTORY: Atypical chest pain. COMPARISON STUDY: Chest radiograph March 28, 2014. FINDINGS: Lung volumes are normal. Lungs are clear. There is no pneumothorax or pleural effusion. Cardiac size is normal. Mediastinal contours are normal. There is no evidence for pulmonary edema. IMPRESSION: No acute cardiopulmonary findings. ACT 112: Negative or not required by law. Electronically signed by: Russ Kirkpatrick M.D. 10/10/2022 1:59 PM Medications Administered Sodium Chloride (Nss 1000ml) 1,000 mls @ 100 mls/hr IV .Q10H OMAR Stop: 10/10/22 22:14 Last Admin: 10/10/22 17:56 Dose: 100 mls/hr Documented By: DERICK Miscellaneous (Icu Protocol For Hyperglycemia) 1 each N/A ACHS OMAR Stop: 10/12/22 17:42 Last Admin: 10/10/22 17:58 Dose: Not Given Documented By: DERICK Discontinued Medications Aspirin (Aspirin Chew 324 Mg) Confirm Administered Dose 324 mg .ROUTE .STK-MED ONE Stop: 10/10/22 14:30 Last Admin: 10/10/22 14:48 Dose: 324 mg Documented By: ESEQUIEL Aspirin (Aspirin Chew 324 Mg) 324 mg PO NOW STA Stop: 10/10/22 14:47 Last Admin: 10/10/22 16:42 Dose: Not Given Documented By: ENRIQUE Fentanyl Citrate (Fentanyl Citrate Pf 100 Mcg/2 Ml Vial) Confirm Administered Dose 100 mcg .ROUTE .STK-MED ONE Stop: 10/10/22 14:46 Last Admin: 10/10/22 16:41 Dose: 100 mcg Documented By: ENRIQUE Fentanyl Citrate (Fentanyl Citrate Pf 100 Mcg/2 Ml Vial) Confirm Administered Dose 100 mcg .ROUTE .STK-MED ONE Stop: 10/10/22 16:10 Last Admin: 10/10/22 16:41 Dose: 25 mcg Documented By: ENRIQUE Heparin Sodium (Porcine) (Heparin (Porcine) 1000 Unit/Ml 10 Ml ([facility] Use Only)) Confirm Administered Dose 10,000 units .ROUTE .STK-MED ONE Stop: 10/10/22 14:46 Last Admin: 10/10/22 16:42 Dose: 10,000 units Documented By: ENRIQUE Heparin Sodium (Porcine) (Heparin Sod (Porcine) 1000 Unit/Ml) 5,000 units IV NOW ONE Stop: 10/10/22 14:57 Last Admin: 10/10/22 16:43 Dose: Not Given Documented By: ENRIQUE Heparin Sodium/Sodium Chloride (Heparin In Nss Infusion 1000 Unit/500 Ml (2 U/Ml) Bag) Confirm Administered Dose 3,000 units IV .STK-MED ONE Stop: 10/10/22 14:47 Last Admin: 10/10/22 16:43 Dose: 3,000 units Documented By: CUCO Heparin Sodium/Dextrose (Heparin Sodium/Dextrose) 25,000 units in 500 mls @ 22 mls/hr IV .[id number] [facility]; Protocol Stop: 11/09/22 14:59 Last Admin: 10/10/22 16:43 Dose: Not Given Documented By: ENRIQUE Midazolam HCl (Midazolam Hcl 1 Mg/Ml 2ml Vial) Confirm Administered Dose 2 mg .ROUTE .STK-MED ONE Stop: 10/10/22 14:46 Last Admin: 10/10/22 16:42 Dose: 2 mg Documented By: ENRIQUE Midazolam HCl (Midazolam Hcl 1 Mg/Ml 2ml Vial) Confirm Administered Dose 2 mg .ROUTE .STK-MED ONE Stop: 10/10/22 15:50 Last Admin: 10/10/22 16:44 Dose: 2 mg Documented By: ENRIQUE Nicardipine HCl (Nicardipine Hcl Inj 2.5 Mg/Ml 10 Ml Amp) Confirm Administered Dose 25 mg .ROUTE .STK-MED ONE Stop: 10/10/22 14:46 Last Admin: 10/10/22 16:42 Dose: 25 mg Documented By: CUCO Nitroglycerin (Nitroglycerin Sl 0.4 Mg/Tab Tab) Confirm Administered Dose 0.4 mg .ROUTE .STK-MED ONE Stop: 10/10/22 14:42 Last Admin: 10/10/22 14:42 Dose: 0.4 mg Documented By: ESEQUEIL Nitroglycerin (Nitroglycerin Sl 0.4 Mg/Tab Tab) 0.4 mg SL NOW STA Stop: 10/10/22 14:45 Last Admin: 10/10/22 14:48 Dose: 0.4 mg Documented By: ESEQUIEL Nitroglycerin/Dextrose (Nitroglycerin/D5w 100mcg/Ml 20ml Syr) Confirm Administered Dose 2,000 mcg .ROUTE .STK-MED ONE Stop: 10/10/22 14:47 Last Admin: 10/10/22 16:43 Dose: 2,000 mcg Documented By: CUCO Pantoprazole Sodium (Pantoprazole 40 Mg Tab) 40 mg PO NOW STA Stop: 10/10/22 17:18 Last Admin: 10/10/22 18:18 Dose: 40 mg Documented By: SHERLEYL Ticagrelor (Ticagrelor 90 Mg Tab) 180 mg PO ONE ONE Stop: 10/10/22 14:42 Last Admin: 10/10/22 14:48 Dose: 180 mg Documented By: BK ECG Additional Comments: Normal sinus rhythm Left atrial enlargement Right bundle branch block with repolarization abnormality Old Anteroseptal infarct Abnormal ECG When compared with ECG of 28-MAR-2014 10:49, Right bundle branch block is now Present Criteria for Anteroseptal infarct is now Present Confirmed by Usman Quinones ([id number]) on 10/10/2022 4:02:18 PM Coding Level of Care Code 49293 CRITICAL CARE 1ST 30-74M Diagnoses Acid reflux K21.9 ACS (acute coronary syndrome) I24.9 Inguinal hernia recurrent bilateral K40.21 COVID U07.1
[2022-10-10] MEDS: METOPROLOL TARTRATE 25 MG TAB PO SCH (21:24)
[2022-10-10 22:37] LABS: Influenza A virus by PCR Negative (Neg); Influenza B virus by PCR Negative (Neg); RSV by PCR Negative (Neg)
[2022-10-10 22:53] LABS: SARS CoV2 RNA(COVID-19) Ceph POSITIVE (Negative)
[2022-10-11 07:29] LABS: Basophils # (auto) 0.04 K/uL (0-0.2); Basophils % (auto) 0.4 %; Eosinophils # (auto) 0.11 K/uL (0-0.50); Hematocrit (blood only) 41.5 % (42.0-52.0); Hemoglobin 14.5 g/dl (14.0-18.0); Immature Granulocytes # (auto) 0.06 K/uL (0.01-0.20); Immature Granulocytes % (auto) 0.5 %; Lymphocytes # (auto) 2.34 K/uL (1.2-3.4); Lymphocytes % (auto) 21.4 %; Mean Corpuscular Hemoglobin 29.9 pg (25.0-34.0); Mean Corpuscular Hgb Conc 34.9 g/dL (32.0-36.0); Mean Corpuscular Volume 85.6 fL (80.0-100.0); Mean Platelet Volume 9.4 fL (9.4-12.4); Monocytes # (auto) 1.71 K/uL (0.11-0.59); Monocytes % (auto) 15.6 %; Neutrophils # (auto) 6.69 K/uL (1.40-6.50); Neutrophils % (auto) 61.1 %; Platelet Count 231 K/uL (130-400); RDW Coefficient of Variation 12.4 % (11.5-14.5); RDW Standard Deviation 38.6 fL (36.4-46.3); Red Blood Count 4.85 M/uL (4.70-6.10); White Blood Count 10.95 K/ul (4.8-10.8)
--- NOTE | 2022-10-11 07:38 | Cardiology Consultation ---
Date of Consultation October 11, 2022 Assessment & Plan (1) ST elevation (STEMI) myocardial infarction involving left anterior descending coronary artery: (2) S/P coronary artery stent placement: (3) Ischemic cardiomyopathy: (4) HFrEF (heart failure with reduced ejection fraction): (5) LV (left ventricular) mural thrombus following ND: (6) Dyslipidemia, goal LDL below 70: Plan IMPRESSION: 57 year old male with late presenting anterior STEMI/100% mid LAD occlusion with partial right to left collaterals s/p Successful PCI of ostial to mid LAD with 2 overlapping drug-eluting stents (3.0 x 23, 2.75 x 33 mm Xience Ischemic cardiomyopathy/HFrEF Echo 10/11/2022: LVEF 40 to 45% with severe anterior wall hypokinesis and moderate to severe lateral wall hypokinesis with apical akinesis. Moderate sized apical thrombus. PLAN: -Patient currently on DAPT with ASA and Brilinta. Given new apical thrombus will need to initiate full anticoagulation. -Titrate GDMT, will transition metoprolol tartrate to succinate formulary 12.5 mg twice daily. Hold Lisinopril due to hypotension, consider restarting low dose 2.5 mg daily pending clinical course. -Euvolemic on exam, not requiring loop diuretic therapy at this time. -Patient will need Post PCI EKG today, orders placed and nursing alerted. -LDL uncontrolled, started on Atorvastatin 80 mg daily this admission. Will need repeat Lipids and LFTs 6 weeks post discharge. -Continue to monitor on telemetry for dysrhythmias while inpatient. -Recommend cardiac rehab at discharge. Case discussed with Dr. Cates- will follow. Supervising Physician Co-Signing Physician Notes Cardiology attending: I personally performed a history and physical exam. Agree with findings and plan as outlined by PEDRO Harman with additions as noted below. Subjective: Patient currently back in bed. No complaints denies chest discomfort or shortness of breath. Systolic blood pressure in the mid 80s on most recent measurement. Telemetry reveals sinus rhythm in the 60s to 80s with right bundle branch block. No arrhythmias. Physical examination: Vital signs as noted Pulm : CTAB , no rales , rhonich, or wheezing CV: regular rhythm , no murmurs, no edema Data: Cardiac catheterization films : report reviewed, images reviewed independently. CXR : no acute cardiopulm process, image reviewed , interpreted independently Echocardiogram: images reviewed independently. There is a large wall motion abnormality with severe hypokinesis to akinesis of the anterior wall, apex, apical inferoseptal wall, and the lateral wall at the apical and mid levels LVEF reported as 40-45%, , perhaps worse on some views with administration of sonic contrast. There is a moderate sized apical mural thrombus Impression: Late presentation of anterior STEMI with acute on chronic LAD occlusion, s/p complex PCI with two overlapping drug eluting stents -Apical mural thrombus -Dyslipidemia Plan: -Complex situation with recent ND ,complex PCI, mural thrombus, hypercoagulable state in setting of COVID-19 positivity. Thrombotic and bleeding risks considered -Patient received Brlinta and aspirin this am. -Will add Eliquis for anticoagulation of given LV mural thrombus, first dose now, dose # 2 am of 10/12. -Continue ASA 81 mg daily during hospital stay -Stop Brilinta after PM dose this evening -Transition to clopidogrel with 300 mg load in am of 10/12 followed by 75 mg daily. -Tentative plan is for transition to clopidogrel and Eliquis dual therapy at time of discharge -Anticipate need for at least 3 months of Eliquis. Duration of course to be determined based on follow up echocardiograms , as it is premature to determine the extend of LV scar or stunning/ hibernation. -Continue Metoprolol, atorvastatin . Case discussed with Dr Santamaria, Dr Adams, Dr Brooks and Mel TamayoD for purposes of coordination of care. Spouse at bedside at time of evaluation. Guevara Cates DO History of Present Illness Reason for Consultation: ACS- Anterior STEMI s/p PCI Requesting Physician: [facility] Attending Physician: Salvador Fernando MD History of Present Illness 57-year-old male who initially presented to the [facility] emergency department due to chest discomfort. Chest pain symptoms started approximately 2 days ago prior to presentation , however, in hindsight be has noted low stamina over the last month. Per the patient's symptoms were initially thought to be related to his GERD and was taking an acids without relief. Upon presentation High-sensitivity troponin elevated in the 14,000s, EKG showed sinus rhythm with a right bundle branch block and Q waves and subtle ST elevations in V2 through V5. Underwent emergent cardiac cath and PCI with Dr. Santamaria. (right radial approach) Cath Summary: 1. Late presenting anterior STEMI/100% mid LAD occlusion with partial right to left collaterals 2. Moderate nonculprit coronary artery disease, 30 to 40% left main by IVUS, 30% ostial circumflex. 60% ostial small OM1 3. Normal intracardiac filling pressure 4. Successful PCI of ostial to mid LAD with 2 overlapping drug-eluting stents (3.0 x 23, 2.75 x 33 mm Xience; postdilated with 3.5 NC). Of note, COVID test was done which was positive. Patient asymptomatic. EKG 10/11/2022- Post PCI: PENDING * Labs: HS Trop + (14,122>>>22,735>> 19,177), Lipids- TG 146, cholesterol 244, LDL 171, HDL 44 Echo 10/11/2022: LVEF 40 to 45% with severe anterior wall hypokinesis and moderate to severe lateral wall hypokinesis with apical akinesis. Moderate sized apical thrombus. No significant valvular pathology. Upon entrance into the room patient resting in bed. Woke easily. at bedside. Notes fatigue, but denies chest pain or SOB. Per nursing, patient became hypotensive with systolics in the 80s when transferred out of bed. Patient was asymptomatic. Denies dizziness/lightheadedness. No palpitations. Overall feels improved compared to yesterday. Tele: NSR with IVCD/RBBB, 70-80s Past medical history: Dyslipidemia Vertigo GERD Esophageal dysphagia History of inguinal hernia status post repair Allergies Allergy/AdvReac Type Severity Reaction Status Date / Time No Known Allergies Allergy Unverified 08/19/18 14:53 Home Medications Medication Instructions Recorded Confirmed Type omeprazole magnesium 20 mg 0 mg PO DAILY 08/19/18 08/19/18 History tablet,delayed release (Prilosec OTC) Patient History Medical History (Updated 10/11/22 @ 08:42 by PEDRO Chung) Acid reflux History of inguinal hernia Inguinal hernia recurrent bilateral Inguinal hernia recurrent bilateral Surgical History (Updated 10/11/22 @ 07:50 by PEDRO Chung) History of hernia repair Family History Other No pertinent family history in first degree relatives Social History Smoking Status: Never smoker Second Hand Exposure: No; Do You Dip or Chew Tobacco: No; Tobacco Cessation Education Requested by Patient: No Hx Alcohol Use: No Hx Substance Use: No Preferred Language: Slovenian Communication Ability: Effective Motel Maid Required: No Beliefs That Will Affect Care: None Current Living Situation: Spouse Other Information That Helps Us Care for You: No Feels Safe at Home: Yes Safety Concerns: Feels Safe At This Time Assistive Devices: None Review of Systems Review of Systems: All systems reviewed & are unremarkable except as noted in HPI & below Physical Exam Constitutional: WD/WN, vitals as above no acute distress Eyes: PERRL, conjunctivae normal, anicteric sclerae Neck: normal visual inspection and trachea midline Respiratory: normal respiratory effort, lungs clear to auscultation Auscultation: no crackles, no rales, no rhonchi and no wheezes Cardiovascular: RRR, no murmur, no edema Heart Sounds: normal S1 and normal S2; no murmur Vessels: no JVD Extremities: no edema Gastrointestinal (Abdomen): normal bowel sounds, soft, nontender, no hepatosplenomegaly Skin: no rashes, warm and dry right radial cath site without evidence of hematoma- dressing clean and intact Neurologic: PERRL, EOMI, accommodation nl, no face palsy, no dysarthria Psychiatric: A+Ox3, euthymic affect Results & Data Vital Signs (Past 12 Hours) Vital Signs Temp Pulse Pulse Resp BP Pulse Ox O2 Del Method 10/10/22 20:00 Room Air 10/11/22 00:00 95 H 10/10/22 21:15 94 H 16 96/68 L 95 Room Air 10/10/22 20:45 95 H 24 104/78 97 Room Air 10/10/22 20:15 83 20 97/75 L 96 Room Air 10/10/22 19:45 36.8 C 93 H 19 106/81 98 Room Air Laboratory Results Cardiac Enzymes 10/10/22 10/11/22 10/11/22 Range/Units 13:38 00:32 07:14 AST 110 H (13-39) U/L Troponin I High Sens 59806.0 H* 72245.4 H* D 52433.4 H* (0-20) pg/ml Lipids 10/11/22 Range/Units 07:14 Triglycerides 146 (0-150) mg/dl Cholesterol 244 H (0-200) mg/dl HDL Cholesterol 44 mg/dl Cholesterol/HDL Ratio 5.5 H (0-5) CBC 10/10/22 10/11/22 Range/Units 13:38 07:14 WBC 10.85 H 10.95 H (4.8-10.8) K/ul RBC 5.39 4.85 (4.70-6.10) M/uL Hgb 16.1 14.5 (14.0-18.0) g/dl Hct 46.0 41.5 L (42.0-52.0) % Plt Count 282 231 (130-400) K/uL Neut # (Auto) 6.72 H 6.69 H (1.40-6.50) K/uL Lymph # (Auto) 2.09 2.34 (1.2-3.4) K/uL [place] # (Auto) 1.87 H 1.71 H (0.11-0.59) K/uL Eos # (Auto) 0.10 0.11 (0-0.50) K/uL Baso # (Auto) 0.04 0.04 (0-0.2) K/uL Comprehensive Metabolic Panel 10/10/22 10/11/22 Range/Units 13:38 07:14 Sodium 139 136 (136-145) mmol/L Potassium 4.2 4.2 (3.5-5.1) mmol/L Chloride 104 105 (98-107) mmol/L Carbon Dioxide 29 26 (21-32) mmol/L BUN 14 17 (6-23) mg/dl Creatinine 1.12 0.97 (0.6-1.4) mg/dl Glucose 97 101 H (70-99(Fasting)) mg/dl Calcium 9.7 8.9 (8.6-10.3) mg/dl AST 110 H (13-39) U/L ALT 30 (7-52) U/L Alkaline Phosphatase 79 (34-104) U/L Total Protein 7.7 (6.0-8.3) gm/dl Albumin 4.4 (3.4-5.0) gm/dl Intake and Output 10/10/22 10/11/22 10/11/22 22:59 06:59 14:59 Intake Total 120 / 1120 1000 / 1120 450 / 450 Output Total 0 / 350 350 / 350 Balance 120 / 770 650 / 770 450 / 450 Intake: IV 1000 / 1000 Sodium Chloride 0.9% 1000ML 1, 1000 / 1000 000 ml @ 100 mls/hr IV .Q10H OMAR Rx#:[id number] Oral 120 / 120 450 / 450 Output: Urine 350 / 350 # Bowel Movements 0 / 0 Other: # Unmeasured Voids 0 Weight 61 kg Weight Measurement Method Built in [facility]
--- NOTE | 2022-10-11 07:39 | Hospitalist Progress Note ---
Date of Service October 11, 2022 Assessment & Plan (1) ACS (acute coronary syndrome): Plan: acute stemi, high risk, Late presenting anterior STEMI Cardiac cart reveals 100% mid LAD occlusion with partial right to left collaterals otherwise moderate nonculprit coronary artery disease 30 to 40% left main by IVUS 30% ostial circumflex. 60% ostial small OM1 s/p Successful PCI of ostial to mid LAD with 2 overlapping drug-eluting stents (3.0 x 23, 2.75 x 33 mm Xience; postdilated with 3.5 NC) Aspirin, Atorvastatin, Ticagrelor, metoprolol lisinopril initiated. With discovery of intracardiac thrombus decision is made to institute anticoagulation with Eliquis 5 twice daily. The patient will remain on aspirin however will have his ticagrelor changed to clopidogrel and upon discharge have his aspirin discontinued therefore he will go home on clopidogrel and Eliquis Cardiology planning on doing an additional echocardiogram limited to evaluate EF function to determine if chest vest will be required (2) COVID: Plan: acute covid, no pneumonia, no active treatment moderate risk COVID hypercoagulability may have a play in his intracardiac thrombus (3) Acid reflux: Plan: chronic stable Protonix Isolated elevation of total bilirubin may be chronic Guilbert's disease low risk (4) Inguinal hernia recurrent bilateral: Admission and Anticipated Discharge Date Admission Date: October 10, 2022 Subjective Patient was seen. He related to me his visit with cardiology regarding his intracardiac thrombus and initiation of anticoagulation. He has no further chest pain or pressure his catheterization site is without discomfort Physical Exam Physical Exam: Awake alert appropriate Exam is regular that murmurs Lungs are clear without wheezes or crackles extremities are without edema Results & Data Results & Data Vital Signs (Past 12 Hours) Vital Signs Temp Pulse Pulse Resp BP Pulse Ox O2 Del Method 10/10/22 20:00 Room Air 10/11/22 00:00 95 H 10/10/22 21:15 94 H 16 96/68 L 95 Room Air 10/10/22 20:45 95 H 24 104/78 97 Room Air 10/10/22 20:15 83 20 97/75 L 96 Room Air 10/10/22 19:45 98.3 F 93 H 19 106/81 98 Room Air Laboratory Results Reviewed CBC Reviewed PRP Reviewed troponin PG Care Time/CCT Total # of Minutes Spent Total Time Spent with Patient: Total time spent is greater than 50% in coordination of care (as documented) at patient's floor/unit and/or counseling patient: Coding Level of Care Code 84323 SUB INP/OBS CARE MIN Diagnoses ACS (acute coronary syndrome) I24.9 COVID U07.1 Acid reflux K21.9 Inguinal hernia recurrent bilateral K40.21
[2022-10-11 07:56] LABS: BUN Creatinine Ratio 17.5 (10-20); Calcium 8.9 mg/dl (8.6-10.3); Chol HDL Ratio 5.5 (0-5); Creatinine Clr Calc Pharmacy 71.6 ml/min; Est GFR (African American) 99.3 ml/min; Est GFR (Non-African American) 85.7 ml/min; Potassium 4.2 mmol/L (3.5-5.1)
[2022-10-11] MEDS: ICU Protocol for HYPERglycemia SCH ×4 (08:00→20:12)
[2022-10-11] MEDS: ASPIRIN 81 MG ECTAB PO SCH (08:00)
[2022-10-11] MEDS: PANTOprazole 40 MG TAB PO SCH (08:01)
[2022-10-11] MEDS: ATORVASTATIN 40 MG TAB PO SCH (08:01)
[2022-10-11] MEDS: TICAGRELOR 90 MG TAB PO SCH ×2 (08:01→20:06)
[2022-10-11] MEDS: METOPROLOL TARTRATE 25 MG TAB PO SCH (08:01)
--- NOTE | 2022-10-11 08:33 | Critical Care Progress Note ---
Date of Service October 11, 2022 Assessment & Plan (1) ST elevation (STEMI) myocardial infarction involving left anterior de scending coronary artery: (2) S/P coronary artery stent placement: (3) COVID: (4) Dyslipidemia, goal LDL below 70: Plan Impression: 57-year-old male presenting with ST elevation myocardial infarction status post NACHO placement. He is doing well post procedurally. Recommendations: 1. Acute coronary syndrome: Continue BHAVANA inhibitor, Brilinta, aspirin, beta- zana. Uptitrate as tolerated. Will need outpatient cardiac rehab. 2. Hyperlipidemia: Continue statin. 3. COVID: Patient is asymptomatic. No indication for adjuvant therapy at this point time. Continue to monitor. Patient is to self isolate for 7 days. Observe for signs or symptoms of progression of disease. Disposition per cardiology. Critical care issues are resolved. Critical care will sign off. Feel free to contact us if we can be of additional assistance Admission and Anticipated Discharge Date Admission Date: October 10, 2022 Subjective Patient seen and examined. EMR reviewed. The patient is awake alert conversant and in no obvious distress. He tolerated the diet this morning. He denies any chest pain or shortness of breath. No nausea or vomiting. No palpitations or lower extremity edema. He was able to get up to a chair yesterday without any difficulty. He is not complaining of any pain in his wrist. No paresthesias. Review of Systems Review of Systems: All systems reviewed & are unremarkable except as noted in Subjective Physical Exam Constitutional: WD/WN, vitals as above Neck: trachea midline, no thyromegaly Respiratory: normal respiratory effort, lungs clear to auscultation Cardiovascular: RRR, no murmur, no edema Gastrointestinal (Abdomen): normal bowel sounds, soft, nontender, no hepatosplenomegaly Musculoskeletal: Extremities: extremities normal to inspection Skin: no rashes, warm and dry Neurologic: Nonfocal exam Lymphatic: no cervical lymphadenopathy Results & Data Results & Data Vital Signs (Past 12 Hours) Vital Signs Pulse Pulse Resp BP BP Pulse Ox O2 Del Method 10/11/22 08:00 79 22 97 10/11/22 08:00 93/59 L 10/11/22 07:54 83 27 H 93 10/11/22 07:54 102/73 10/11/22 07:46 86 23 95 10/11/22 07:46 84/63 L 10/11/22 07:45 86/71 L 10/11/22 07:45 78 18 96 10/11/22 07:30 69 13 97 10/11/22 07:00 75 19 94 10/11/22 07:00 100/62 10/11/22 00:00 95 H 10/10/22 21:15 94 H 16 96/68 L 95 Room Air 10/10/22 20:45 95 H 24 104/78 97 Room Air Critical Care Results & Data Vital Signs (Past 12 Hours) Vital Signs Pulse Pulse Resp BP BP Pulse Ox O2 Del Method 10/11/22 08:00 79 22 97 10/11/22 08:00 93/59 L 10/11/22 07:54 83 27 H 93 10/11/22 07:54 102/73 10/11/22 07:46 86 23 95 10/11/22 07:46 84/63 L 10/11/22 07:45 86/71 L 10/11/22 07:45 78 18 96 10/11/22 07:30 69 13 97 10/11/22 07:00 75 19 94 10/11/22 07:00 100/62 10/11/22 00:00 95 H 10/10/22 21:15 94 H 16 96/68 L 95 Room Air 10/10/22 20:45 95 H 24 104/78 97 Room Air Lab & Micro Results (Past 24 Hours) RBC 4.85 M/uL (4.70-6.10) 10/11/22 WBC 10.95 K/ul (4.8-10.8) H 10/11/22 Hgb 14.5 g/dl (14.0-18.0) 10/11/22 Hct 41.5 % (42.0-52.0) L 10/11/22 MCV 85.6 fL (80.0-100.0) 10/11/22 MCH 29.9 pg (25.0-34.0) 10/11/22 MCHC 34.9 g/dL (32.0-36.0) 10/11/22 RDW Standard Deviation 38.6 fL (36.4-46.3) 10/11/22 RDW Coefficient of Variation 12.4 % (11.5-14.5) 10/11/22 Plt Count 231 K/uL (130-400) 10/11/22 MPV 9.4 fL (9.4-12.4) 10/11/22 Neutrophils (%) (Auto) 61.1 % 10/11/22 Lymphocytes (%) (Auto) 21.4 % 10/11/22 Monocytes # (Auto) 1.71 K/uL (0.11-0.59) H 10/11/22 Eosinophils # (Auto) 0.11 K/uL (0-0.50) 10/11/22 Immature Granulocyte % (Auto) 0.5 % 10/11/22 Neutrophils # (Auto) 6.69 K/uL (1.40-6.50) H 10/11/22 Lymphocytes # (Auto) 2.34 K/uL (1.2-3.4) 10/11/22 Monocytes # (Auto) 1.71 K/uL (0.11-0.59) H 10/11/22 Eosinophils # (Auto) 0.11 K/uL (0-0.50) 10/11/22 Basophils # (Auto) 0.04 K/uL (0-0.2) 10/11/22 Immature Granulocyte # (Auto) 0.06 K/uL (0.01-0.20) 3 Na 136 mmol/L (136-145) 10/11/22 K 4.2 mmol/L (3.5-5.1) 10/11/22 Cl 105 mmol/L (98-107) 10/11/22 CO2 26 mmol/L (21-32) 10/11/22 Anion Gap 5 (3-11) 10/11/22 BUN 17 mg/dl (6-23) 10/11/22 Creatinine 0.97 mg/dl (0.6-1.4) 10/11/22 Estimated GFR ( Amer) 99.3 ml/min 10/11/22 Estimated GFR (Non-Af Amer) 85.7 ml/min 10/11/22 BUN/Creatinine Ratio 17.5 (10-20) 10/11/22 Glu 101 mg/dl (70-99(Fasting)) H 10/11/22 Ca 8.9 mg/dl (8.6-10.3) 10/11/22 Total Bilirubin 1.8 mg/dl (0.2-1.0) H 10/10/22 AST 110 U/L (13-39) H 10/10/22 ALT 30 U/L (7-52) 10/10/22 Alkaline Phosphatase 79 U/L (34-104) 10/10/22 TP 7.7 gm/dl (6.0-8.3) 10/10/22 Albumin 4.4 gm/dl (3.4-5.0) 10/10/22 Globulin 3.3 gm/dl (2.5-4.0) 10/10/22 Albumin/Globulin Ratio 1.3 (0.9-2) 10/10/22 Calcium Level 8.9 mg/dl (8.6-10.3) 10/11/22 07:14 Diagnostic Findings (Past 24 Hours) Chest X-Ray 10/10/22 13:32 XR chest 1V not portable CLINICAL HISTORY: Atypical chest pain. COMPARISON STUDY: Chest radiograph March 28, 2014. FINDINGS: Lung volumes are normal. Lungs are clear. There is no pneumothorax or pleural effusion. Cardiac size is normal. Mediastinal contours are normal. There is no evidence for pulmonary edema. IMPRESSION: No acute cardiopulmonary findings. ACT 112: Negative or not required by law. Electronically signed by: Russ Kirkpatrick M.D. 10/10/2022 1:59 PM I & O Totals 24 Hours 10/10/22 10/11/22 10/12/22 06:59 06:59 06:59 Intake Total 1120 / 1120 Output Total 350 / 350 Balance 770 / 770 Cumulative 10/10/22 13:21 thru 10/11/22 04:00 Intake Total 1120 Output Total 350 Balance 770 RT Ventilator Mngmt (Last Documented) Ventilator Ordered Settings Respiratory Rate 22 10/11/22 08:00 Ventilator - PT Measurements Respiratory Rate 22 Coding Level of Care Code 40676 SUB INP/OBS CARE 2/35MIN Diagnoses ST elevation (STEMI) myocardial infarction involving left anterior descending coronary artery I21.02 S/P coronary artery stent placement Z95.5 COVID U07.1 Dyslipidemia, goal LDL below 70 E78.5
[2022-10-11] MEDS ORDERED: lisinopril 5 MG TAB PO SCH (09:00)
[2022-10-11 10:36] LABS: Estimated Average Glucose 105 mg/dl; Hemoglobin A1C 5.3 % (4.5-5.6)
--- NOTE | 2022-10-11 10:36 | Electrocardiogram Report ---
Test Reason : Blood Pressure : / mmHG Vent. Rate : 086 BPM Atrial Rate : 086 BPM P-R Int : 146 ms QRS Dur : 104 ms QT Int : 336 ms P-R-T Axes : 043 176 057 degrees QTc Int : 402 ms Normal sinus rhythm Right bundle branch block with repolarization abnormality Right ventricular hypertrophy with repolarization abnormality Anteroseptal infarct (cited on or before 10-OCT-2022) , age undetermined Abnormal ECG When compared with ECG of 10-OCT-2022 13:36, No significant change was found Confirmed by Usman Quinones ([id number]) on 10/11/2022 10:36:24 AM Referred By: REFERRED SELF Confirmed By:Usman Quinones
--- NOTE | 2022-10-11 10:37 | Electrocardiogram Report ---
Test Reason : Blood Pressure : / mmHG Vent. Rate : 088 BPM Atrial Rate : 088 BPM P-R Int : 158 ms QRS Dur : 114 ms QT Int : 332 ms P-R-T Axes : 047 086 020 degrees QTc Int : 401 ms Normal sinus rhythm Possible Left atrial enlargement Incomplete right bundle branch block Acute Anterolateral infarct Abnormal ECG When compared with ECG of 10-OCT-2022 14:23, ST elevation now present in Lateral leads Confirmed by Usman Quinones ([id number]) on 10/11/2022 10:37:20 AM Referred By: REFERRED SELF Confirmed By:Usman Quinones
--- NOTE | 2022-10-11 10:38 | Electrocardiogram Report ---
Test Reason : Blood Pressure : / mmHG Vent. Rate : 081 BPM Atrial Rate : 081 BPM P-R Int : 144 ms QRS Dur : 106 ms QT Int : 346 ms P-R-T Axes : 031 075 022 degrees QTc Int : 401 ms Normal sinus rhythm Low voltage QRS Right bundle branch block Acute Anterolateral infarct Abnormal ECG When compared with ECG of 10-OCT-2022 18:49, No significant change was found Confirmed by Usman Quinones ([id number]) on 10/11/2022 10:38:06 AM Referred By: REFERRED SELF Confirmed By:Usman Quinones
[2022-10-11] MEDS ORDERED: APIXABAN 5 MG TABLET PO ONE (11:00)
[2022-10-11] MEDS ORDERED: METOPROLOL SUCC 25MG EXT REL TAB PO SCH (21:00)
[2022-10-12 05:26] LABS: BUN Creatinine Ratio 16.7 (10-20); Calcium 9.3 mg/dl (8.6-10.3); Creatinine Clr Calc Pharmacy 68.1 ml/min; Est GFR (African American) 93.5 ml/min; Est GFR (Non-African American) 80.6 ml/min
[2022-10-12 05:36] LABS: Basophils # (auto) 0.03 K/uL (0-0.2); Basophils % (auto) 0.3 %; Eosinophils # (auto) 0.15 K/uL (0-0.50); Eosinophils % (auto) 1.7 %; Hematocrit (blood only) 38.6 % (42.0-52.0); Hemoglobin 13.8 g/dl (14.0-18.0); Immature Granulocytes # (auto) 0.04 K/uL (0.01-0.20); Immature Granulocytes % (auto) 0.5 %; Lymphocytes # (auto) 2.19 K/uL (1.2-3.4); Lymphocytes % (auto) 25.2 %; Mean Corpuscular Hemoglobin 30.3 pg (25.0-34.0); Mean Corpuscular Hgb Conc 35.8 g/dL (32.0-36.0); Mean Corpuscular Volume 84.6 fL (80.0-100.0); Mean Platelet Volume 9.5 fL (9.4-12.4); Monocytes # (auto) 1.22 K/uL (0.11-0.59); Neutrophils # (auto) 5.07 K/uL (1.40-6.50); Neutrophils % (auto) 58.3 %; Platelet Count 237 K/uL (130-400); RDW Coefficient of Variation 12.3 % (11.5-14.5); RDW Standard Deviation 37.8 fL (36.4-46.3); Red Blood Count 4.56 M/uL (4.70-6.10)
[2022-10-12] MEDS: PANTOprazole 40 MG TAB PO SCH (07:28)
[2022-10-12] MEDS: ICU Protocol for HYPERglycemia SCH ×2 (07:28→10:40)
[2022-10-12] MEDS: ASPIRIN 81 MG ECTAB PO SCH (07:28)
[2022-10-12] MEDS: METOPROLOL SUCC 25MG EXT REL TAB PO SCH (07:28)
[2022-10-12] MEDS: APIXABAN 5 MG TABLET PO SCH ×2 (07:29→20:30)
[2022-10-12] MEDS: ATORVASTATIN 40 MG TAB PO SCH (07:29)
--- NOTE | 2022-10-12 07:49 | Hospitalist Progress Note ---
Date of Service October 12, 2022 Assessment & Plan (1) ACS (acute coronary syndrome): Plan: acute stemi, high risk, Late presenting anterior STEMI, risk mitigated with stent but now wtih intracardiac thrombus Cardiac cart reveals 100% mid LAD occlusion with partial right to left collaterals otherwise moderate nonculprit coronary artery disease 30 to 40% left main by IVUS 30% ostial circumflex. 60% ostial small OM1 s/p Successful PCI of ostial to mid LAD with 2 overlapping drug-eluting stents (3.0 x 23, 2.75 x 33 mm Xience; postdilated with 3.5 NC) Aspirin, Atorvastatin, Ticagrelor, metoprolol lisinopril initiated. With discovery of intracardiac thrombus decision is made to institute anticoagulation with Eliquis 5 twice daily. The patient will remain on aspirin however will have his ticagrelor changed to clopidogrel and upon discharge have his aspirin discontinued therefore he will go home on clopidogrel and Eliquis Cardiology planning on doing an additional echocardiogram limited to evaluate EF function to determine if chest vest will be required (2) COVID: Plan: acute covid, no pneumonia, no active treatment moderate risk COVID hypercoagulability may have a play in his intracardiac thrombus (3) Acid reflux: Plan: chronic stable Protonix Isolated elevation of total bilirubin may be chronic Guilbert's disease low risk (4) Inguinal hernia recurrent bilateral: Admission and Anticipated Discharge Date Admission Date: October 10, 2022 Subjective Pt is awake and alert, has no issues, short run of VT, family at the bedside is updated Physical Exam Physical Exam: Awake alert appropriate Exam is regular that murmurs Lungs are clear without wheezes or crackles extremities are without edema Results & Data Results & Data Vital Signs (Past 12 Hours) Vital Signs Pulse Resp BP Pulse Ox O2 Del Method 10/12/22 06:00 79 12 99/73 L 95 10/12/22 05:00 103/73 10/12/22 05:00 76 7 L 103/73 94 10/12/22 04:00 78 21 96/74 L 93 10/12/22 00:00 82 10/12/22 03:00 77 23 95/72 L 94 10/12/22 02:00 89 0 L 100/74 94 10/12/22 01:00 82 23 101/74 93 04/05/23 00:00 82 21 112/74 94 10/11/22 23:00 87 15 102/71 94 10/11/22 22:00 89 21 93 10/11/22 21:00 83 13 103/78 96 10/11/22 20:00 83 25 H 96/79 L 96 10/11/22 20:00 Room Air PG Care Time/CCT Total # of Minutes Spent Total Time Spent with Patient: Total time spent is greater than 50% in coordination of care (as documented) at patient's floor/unit and/or counseling patient: Coding Level of Care Code 02094 SUB INP/OBS CARE 235MIN Diagnoses ACS (acute coronary syndrome) I24.9 COVID U07.1 Acid reflux K21.9 Inguinal hernia recurrent bilateral K40.21
[2022-10-12] MEDS ORDERED: CLOPIDOGREL BISULFATE 300 MG TAB PO ONE (09:00)
--- NOTE | 2022-10-12 09:30 | Electrocardiogram Report ---
Test Reason : Blood Pressure : / mmHG Vent. Rate : 078 BPM Atrial Rate : 078 BPM P-R Int : 152 ms QRS Dur : 110 ms QT Int : 348 ms P-R-T Axes : 035 070 039 degrees QTc Int : 396 ms Normal sinus rhythm Right bundle branch block Serial changes of evolving Anterolateral infarct (cited on or before 10-OCT-2022) Abnormal ECG When compared with ECG of 10-OCT-2022 20:00, Serial changes of Anterolateral infarct Present Confirmed by Usman Quinones ([id number]) on 10/12/2022 9:30:25 AM Referred By: REFERRED SELF Confirmed By:Usman Quinones
--- NOTE | 2022-10-12 11:34 | Cardiology Progress Note ---
Date of Service October 12, 2022 Assessment & Plan (1) ST elevation (STEMI) myocardial infarction involving left anterior de scending coronary artery: (2) Ischemic cardiomyopathy: (3) HFrEF (heart failure with reduced ejection fraction): (4) LV (left ventricular) mural thrombus following NM: (5) Dyslipidemia, goal LDL below 70: Plan - Due to relative hypotension, lisinopril remains on hold. Dose of metoprolol succinate reduced to 12.5 milligrams daily, but he did not have received this this morning due to the hold parameters with regards to systolic blood pressure less than 100 millimeters Hg first thing this morning. - He is now on aspirin 81 milligrams daily, clopidogrel 75 milligrams daily (having received 300 milligram loading dose this morning 10/12/2022), and Eliquis 5 milligrams twice daily. - Tentative plan at time of discharge as discussed with interventional Cardiology is to continue clopidogrel 75 milligrams daily for his PCI, and Eliquis for the left ventricular apical thrombus and stop aspirin to avoid the bleeding risks associated with triple therapy. - Continue atorvastatin 80 milligrams daily. - Given findings of large LAD territory infarct, and single episode of 5 beat run of nonsustained ventricular tachycardia repeat echocardiogram performed this morning for reassessment left ventricular systolic function. The echocardiogram has been completed, but the reporting system is down right now. study will be reviewed/ reported once the technical issues are resolved. If ejection fraction is 35% or less on repeat echocardiogram, will likely proceed with discharge utilizing a [email or web address] Life Vest . Patient agreeable with this if indicated. -Patient stable for change to telemetry status. Remain in hospital today. Admission and Anticipated Discharge Date Admission Date: October 10, 2022 Subjective Patient seen in cardiology follow-up of his recent LAD territory ST segment myocardial infarction, and left ventricular apical thrombus. Remains on isolation protocol having tested positive for COVID-19. Continues to have no viral symptoms. Telemetry reveals sinus rhythm in the 80s. On 10/11/2022 at 2:19 a.m. a 5 beat run of nonsustained ventricular tachycardia was observed, without recurrence in the interim time. Had been noted to have multiple low blood pressure readings, most recently with blood pressure having been taken with a smaller size cuff, blood pressure reading at 9:00 a.m. was 107/74. He describes having had a long-standing history of elevated blood pressure not low blood pressure. He denies any chest discomfort, shortness of breath, or subjective palpitations. He has not really been out of bed much however. Review of Systems Review of Systems: All systems reviewed & are unremarkable except as noted in HPI & below Physical Exam Constitutional: WD/WN, vitals as above Respiratory: normal respiratory effort, lungs clear to auscultation Cardiovascular: RRR, no murmur, no edema Chest (Breasts): normal inspection/palpation of breasts Neurologic: PERRL, EOMI, accommodation nl, no face palsy, no dysarthria Psychiatric: A+Ox3, euthymic affect Results & Data Vital Signs (Past 12 Hours) Vital Signs Temp Pulse Resp BP Pulse Ox O2 Del Method 10/12/22 09:00 83 20 107/74 95 Room Air 10/12/22 08:00 80 18 88/66 L 96 Room Air 10/12/22 07:00 82 39 H 104/73 95 Room Air 10/12/22 08:35 37.4 C 10/12/22 06:00 79 12 99/73 L 95 10/12/22 05:00 103/73 10/12/22 05:00 76 7 L 103/73 94 10/12/22 04:00 78 21 96/74 L 93 10/12/22 00:00 82 10/12/22 03:00 77 23 95/72 L 94 10/12/22 02:00 89 0 L 100/74 94 10/12/22 01:00 82 23 101/74 93 10/12/22 00:00 82 21 112/74 94 Laboratory Results Cardiac Enzymes 10/11/22 Range/Units 12:16 Troponin I High Sens 63834.8 H* (0-20) pg/ml CBC 10/12/22 Range/Units 04:49 WBC 8.70 (4.8-10.8) K/ul RBC 4.56 L (4.70-6.10) M/uL Hgb 13.8 L (14.0-18.0) g/dl Hct 38.6 L (42.0-52.0) % Plt Count 237 (130-400) K/uL Neut # (Auto) 5.07 (1.40-6.50) K/uL Lymph # (Auto) 2.19 (1.2-3.4) K/uL [place] # (Auto) 1.22 H (0.11-0.59) K/uL Eos # (Auto) 0.15 (0-0.50) K/uL Baso # (Auto) 0.03 (0-0.2) K/uL Comprehensive Metabolic Panel 10/12/22 Range/Units 04:49 Sodium 133 L (136-145) mmol/L Potassium 4.0 (3.5-5.1) mmol/L Chloride 101 (98-107) mmol/L Carbon Dioxide 25 (21-32) mmol/L BUN 17 (6-23) mg/dl Creatinine 1.02 (0.6-1.4) mg/dl Glucose 97 (70-99(Fasting)) mg/dl Calcium 9.3 (8.6-10.3) mg/dl Intake and Output 10/11/22 10/12/22 10/12/22 22:59 06:59 14:59 Intake Total 300 / 1150 Output Total 200 / 1900 1300 / 1900 Balance 100 / -750 -1300 / -750 Intake: Oral 300 / 1150 Output: Urine 200 / 1900 1300 / 1900 Diagnostic Findings EKG performed 10/12/2022 at 6:03 a.m.: Interpreted independently Normal sinus rhythm at 70 beats per minute with right bundle branch block, serial changes of evolved anterolateral infarct noted with subtle residual ST segment elevation over Q-waves in leads V2 to V5.
[2022-10-13] MEDS: ASPIRIN 81 MG ECTAB PO SCH (07:29)
[2022-10-13] MEDS: APIXABAN 5 MG TABLET PO SCH (07:29)
[2022-10-13] MEDS: METOPROLOL SUCC 25MG EXT REL TAB PO SCH (07:30)
[2022-10-13] MEDS: PANTOprazole 40 MG TAB PO SCH (07:30)
[2022-10-13] MEDS: ATORVASTATIN 40 MG TAB PO SCH (07:30)
[2022-10-13] MEDS ORDERED: CLOPIDOGREL BISULFATE 75 MG TAB PO SCH (09:00)
--- NOTE | 2022-10-13 11:27 | Cardiology Progress Note ---
Date of Service October 13, 2022 Assessment & Plan (1) ST elevation (STEMI) myocardial infarction involving left anterior de scending coronary artery: (2) Ischemic cardiomyopathy: (3) HFrEF (heart failure with reduced ejection fraction): (4) LV (left ventricular) mural thrombus following AK: (5) Dyslipidemia, goal LDL below 70: Plan - He is now on aspirin 81 milligrams daily, clopidogrel 75 milligrams daily (having received 300 milligram loading dose this morning 10/12/2022), and Eliquis 5 milligrams twice daily. - Tentative plan at time of discharge as discussed with interventional Cardiology is to continue clopidogrel 75 milligrams daily for his PCI, and Eliquis 5 milligrams twice daily for the left ventricular apical thrombus and stop aspirin to avoid the bleeding risks associated with triple therapy. - Continue atorvastatin 80 milligrams daily. - Given findings of large LAD territory infarct, and single episode of 5 beat run of nonsustained ventricular tachycardia repeat echocardiogram performed this morning for reassessment left ventricular systolic function. Echocardiogram as reported on 10/12/2022 revealed a large LAD territory wall motion abnormality, with apical left ventricular mural thrombus ( moderate in size ) and ejection fraction of 35%. - Order and supporting documentation submitted for insurance approval of [employer] - patient remains on metoprolol succinate 12.5 milligrams once per day, which was administered this morning. Additional medications for left ventricular systolic dysfunction such as an [place] inhibitor, angiotensin receptor zana, Entresto, and spironolactone, all contraindicated at present due to hypotension. Addition of such medications will be reassessed as an outpatient. - Patient encouraged to walk within his room to make sure he does not have symptoms of chest discomfort or orthostatic hypotension symptoms. - Tentative plan is for discharge after LifeVest is in place, hopefully this afternoon or tomorrow morning. - I have requested an outpatient cardiology follow-up visit in 2- 3 weeks. -tentative plan will be for a cardiac MRI 3 months post PCI to Reassessed left ventricular systolic function and LV mural thrombus. Admission and Anticipated Discharge Date Admission Date: October 10, 2022 Subjective Patient seen in cardiology follow-up of his recent anterior ST segment elevation myocardial infarction, moderate to severe left ventricular systolic dysfunction, and left ventricular apical mural thrombus. Patient remains on isolation for positive COVID-19 test. Denies any viral symptoms. He has not been out of bed much. Blood pressure remains on the lower side, 91/72. Denies any chest discomfort shortness of breath. Telemetry reveals sinus rhythm 80s with no recurrence of nonsustained ventricular tachycardia, having had a single 5 beat episode during his first 24 hours of hospitalization. Physical Exam Constitutional: WD/WN, vitals as above Respiratory: normal respiratory effort, lungs clear to auscultation Cardiovascular: RRR, no murmur, no edema Chest (Breasts): normal inspection/palpation of breasts Neurologic: PERRL, EOMI, accommodation nl, no face palsy, no dysarthria Psychiatric: A+Ox3, euthymic affect Results & Data Vital Signs (Past 12 Hours) Vital Signs Pulse Resp BP Pulse Ox O2 Del Method 10/13/22 09:00 87 22 95 10/13/22 08:00 85 17 95 10/13/22 08:00 91/72 L 10/13/22 07:57 84 10/13/22 07:34 101/75 10/13/22 07:34 92 H 16 95 Room Air 10/13/22 07:00 78 18 95 Room Air 10/13/22 06:00 83 19 94 10/13/22 05:00 83 20 94 10/13/22 04:00 82 19 96/70 L 93 10/13/22 03:00 81 24 94 10/13/22 02:00 80 20 95 10/13/22 01:00 73 21 93 10/13/22 00:00 85 22 94 10/13/22 00:00 106/73 Laboratory Results Hemoglobin most recently measured yesterday 10/12/2022 and was stable at 13.8.
--- NOTE | 2022-10-13 15:58 | Discharge Summary ---
Date of Service October 13, 2022 Admission HPI Per Admitting Provider Avelino is a 57-year-old male with a past medical history of esophageal stenosis, GERD, and inguinal hernia s/p repair on who presented with left arm and shoulder pain of 1 day which she thought was GERD. He had had similar GERD symptoms in the past for which she had been on intermittent antiacid medicines, but had stopped these due to improvement in symptoms. He notes he was on cholesterol medicines while in the , but stopped these around 2 years ago. Has not followed up with a PCP recently. 2 days ago around dinnertime he was walking and had sudden tightness in his chest which radiated to his neck and his left shoulder. Thought this may have been GERD versus some neuropathy as he has C5- C7 injury which improved with physical therapy. He reports he rested which helped the pain a little bit, but generally had continued chest pain for the next 2 days which did not resolve completely at any point. He continued to have chest pain worsened on exertion morning of admission, although no shortness of breath or diaphoresis. Due to ongoing pain he presented to the ER for evaluation. He was found to have V2V5 ST elevations and a right bundle branch block, with a elevated troponin of 14,000. He was taken emergently to the [facility] and was found to have a complete LAD occlusion. He is seen postcatheterization. Postcatheterization his pain has completely resolved and he has no chest pain, shortness of breath, lightheadedness or dizziness. He reports he has not been sick leading up to this and has had no fever or chills. He does not have any pain at all, including any pain similar to his prior GERD pain. His right wrist has a TR band in place, he has no underlying swelling. Sensation is intact in his fingertips bilaterally without deficit, and he does not feel he is having any weakness. He reports his does see Dr. Benoit as an outpatient, and he would like to establish with his office for follow-up in the future. He also does not have a PCP, but would like [place] [facility] [place] with a provider at the same office as his . No other questions or concerns at bedside. He does not have any personal or family history of diabetes, no personal or family history of hypertension, denies personal and family history of [place]. Does have a personal history of hyperlipidemia. Denies current and former tobacco use. Full code. Principal Diagnosis ACS Discharge Exam Awake alert appropriate Exam is regular that murmurs Lungs are clear without wheezes or crackles extremities are without edema Discharge Data Allergies Allergy/AdvReac Type Severity Reaction Status Date / Time No Known Allergies Allergy Unverified 08/19/18 14:53 Consultations 10/10/22 14:47 ED Decision to Admit Stat 10/10/22 17:43 Consult Cardiology Routine Consult Restaurant Expeditor Routine 10/11/22 18:43 Consult Cardiology Routine Procedures Performed Operation Date: 10/10/22 15:00 Actual Procedures s Cineradiography w/Routine Exam - Ruperto Santamaria MD p Cath, Left with Cors and Vent - Ruperto Santamaria MD s IVUS Coronary Single Vessel - Ruperto Santamaria MD p Drug Eluting Stent SGl Vessel - Ruperto Santamaria MD Ordered Studies 10/10/22 07:41 CL IVUS Coronary Single Vessel Routine 10/10/22 14:58 CL Cath Imgs for PACS use only Stat Hospital Course (1) ACS (acute coronary syndrome): acute stemi, high risk, Late presenting anterior STEMI, risk mitigated with stent but now wtih intracardiac thrombus Cardiac cart reveals 100% mid LAD occlusion with partial right to left collaterals otherwise moderate nonculprit coronary artery disease 30 to 40% left main by IVUS 30% ostial circumflex. 60% ostial small OM1 s/p Successful PCI of ostial to mid LAD with 2 overlapping drug-eluting stents (3.0 x 23, 2.75 x 33 mm Xience; postdilated with 3.5 NC) Aspirin, Atorvastatin, Ticagrelor, metoprolol lisinopril initiated. With discovery of intracardiac thrombus decision is made to institute anticoagulation with Eliquis 5 twice daily. The patient will remain on aspirin however will have his ticagrelor changed to clopidogrel and upon discharge have his aspirin discontinued therefore he will go home on clopidogrel and Eliquis - Cardiology recommended life vest - Will recommend you continue on clopidogrel 75 milligrams daily and Eliquis 5 milligrams twice daily. - Continue atorvastatin 80 milligrams daily. - Continue on metoprolol succinate 12.5 milligrams once per day - Dr. Cates requested an outpatient cardiology follow-up visit in 2- 3 weeks. - tentative plan will be for a cardiac MRI 3 months from now. (2) COVID: acute covid, no pneumonia, no active treatment moderate risk COVID hypercoagulability may have a play in his intracardiac thrombus (3) Acid reflux: chronic stable Protonix Isolated elevation of total bilirubin may be chronic Guilbert's disease low risk (4) Inguinal hernia recurrent bilateral: Total Time Total Time Spent Total Time Spent (In Minutes): 32 Discharge Plan Discharge Items Patient Disposition: Home - Self-Care Reason For Visit: STEMI, PCI NACHO 2X LAD Discharge Diagnosis: STEMI Activity: Resume your previous activity Non-emergency contact: Primary Care Provider Call non-emergency contact if: you have any medication questions Follow-up/Referrals: PCP,NO [Primary Care Provider] - Diet: Heart Healthy Addtl Attending Provider Instructions: Home Care: * Take your medications exactly as directed. Don't skip doses. * Remember that recovery after a heart attack takes time. Plan to rest for at lease 4-8 weeks while you recover. Then return to normal activity when your doctor says it's okay. * Ask your doctor about joining a heart rehabilitation program. * Tell your doctor if you are feeling depressed. Feelings of sadness are common after a heart attack, but it is important that you speak to someone if you are feeling overwhelmed by these feelings. * If you are having chest pain, call 911 for an ambulance. Do NOT drive yourself to the hospital. * Ask your family members to learn CPR. * Learn to take your own blood pressure and pulse. Keep a record of your results. Ask your doctor when you should seek emergency medical attention. He or she will tell you which blood pressure reading is dangerous. Lifestyle Changes: * Maintain a healthy weight. Get help to lose any extra pounds. * Cut back on salt. * Limit canned, dried, packaged, and fast foods. * Don't add salt to your food. * Season foods with herbs instead of salt when you cook. * Break the smoking habit. Enroll in a stop-smoking program to improve your chances of success. * Limit fatty foods. * Ask your doctor about having your lipid levels checked regularly. * Build up your activity according to your doctor's recommendation. * Ask your doctor when it's okay to resume sexual activity. * Tell your doctor about any erectile dysfunction (ED) medication you are taking. Some ED medications are not safe if you take certain heart medications. * Try to manage stress. Follow Up: It is important for you to keep your follow up appointments with your medical provider. Will recommend you continue on clopidogrel 75 milligrams daily and Eliquis 5 milligrams twice daily. - Continue atorvastatin 80 milligrams daily. -You obtained a [employer] Life Vest Continue on metoprolol succinate 12.5 milligrams once per day, which was administered this morning. Additional medications will be reassessed as an outpatient. - Dr. Cates requested an outpatient cardiology follow-up visit in 2- 3 weeks. -tentative plan will be for a cardiac MRI 3 months from now. Pending Studies at Discharge: No Stand-Alone Forms: My [facility] Screen, Smoking Cessation Medications and DC Order Prescriptions: New atorvastatin 40 mg Tablet 80 mg PO QAM Qty: 60 0RF clopidogrel 75 mg Tablet 75 mg PO QAM Qty: 30 0RF metoprolol succinate 25 mg Tablet Extended Release 24 Hr 12.5 mg PO DAILY Qty: 30 0RF Eliquis 5 mg Tablet 5 mg PO BID Qty: 60 0RF pantoprazole 40 mg Tablet,Delayed Release (Dr/Ec) 40 mg PO QAM Qty: 30 0RF Discontinued omeprazole magnesium [Prilosec OTC] 20 mg Tablet,Delayed Release (Dr/Ec) 0 mg PO DAILY Discharge Orders: Discharge Order- CHF (Routine); Ordered 10/13/22 Ordered By: Thomas Razo Admission Data Admit Date/Time: 10/10/22 16:28 Attending Provider: Thomas Razo Admit Provider: Duane Nagel Primary Care Provider: PCP,NO Other Providers: Ruperto Santamaria ; Al Adams James J Other Interventions: Discharge Summary Assessment (RN) Last Done: 10/13/22 15:42 Coding Level of Care Code 77642 INP/OBS DISCH >30 MIN Diagnoses ACS (acute coronary syndrome) I24.9 COVID U07.1 Acid reflux K21.9 Inguinal hernia recurrent bilateral K40.21
== END 2022-10-13 18:13 | disposition home or self-care (01) | DRG 246 ==
LOC: ED 13:21 → SUATTDRO 16:28 → 1E 16:28
DX: I95.9 Hypotension, unspecified; D68.69 Other thrombophilia; K21.9 Gastro-esophageal reflux disease without esophagitis; I21.02 ST elevation (STEMI) myocardial infarction involving left anterior descending coronary artery; E80.4 Gilbert syndrome; I51.3 Intracardiac thrombosis, not elsewhere classified; I47.20 Ventricular tachycardia, unspecified; I25.5 Ischemic cardiomyopathy; Z87.19 Personal history of other diseases of the digestive system; E78.5 Hyperlipidemia, unspecified; U07.1 COVID-19; I50.20 Unspecified systolic (congestive) heart failure; I25.10 Atherosclerotic heart disease of native coronary artery without angina pectoris; Z79.899 Other long term (current) drug therapy